=== PATIENT | female | born 1975 | race African-American/Black ===

== ENCOUNTER 2018-10-08 14:58 | Emergency (ER) | payer OTHER ==
[2018-10-08 16:33] LABS: Absolute Lymphocytes (CBC) 2.6 K/uL (0.7-4.9); Absolute Monocytes 0.5 K/uL (0.1-1.3); Absolute Neutrophil 6.4 K/uL (1.8-8.0); Basophils % 0.6 % (0-1.3); Eosinophils % 0.6 % (0-4.4); Hematocrit 32.4 % (36.0-45.0); Lymphocytes % 27.2 % (15.3-44.8); MPV 9.1 fL (7.6-11.3); Monocytes % 5.1 % (3.3-12.3); RBC Red Blood Cell Count 3.88 M/uL (3.86-4.86)
--- NOTE | 2018-10-08 16:45 | RAD REPORT ---
EXAM DESCRIPTION: Kelly Single View10/08/2018 4:06 pm CLINICAL HISTORY: Chest pain COMPARISON: none FINDINGS: The lungs appear clear of acute infiltrate. The heart is normal size IMPRESSION: No acute abnormalities displayed
[2018-10-08 16:51] LABS: ALT/SGPT 21 U/L (12-78); AST/SGOT 13 U/L (15-37); Albumin 3.8 g/dL (3.4-5.0); Alkaline Phosphatase 63 U/L (45-117); BUN Blood Urea Nitrogen 5 mg/dL (7-18); Bicarbonate 23 mmol/L (21-32); Bilirubin Direct < 0.1 mg/dL (0-0.2); Bilirubin Total 0.3 mg/dL (0.2-1.0); Glucose Level 101 mg/dL (74-106); Lipase 167 U/L (73-393); Magnesium 2.1 mg/dL (1.8-2.4); NT PRO-BNP 185 pg/mL (<125); Potassium 3.3 mmol/L (3.5-5.1); Protein, Total 7.9 g/dL (6.4-8.2); Sodium Level 141 mmol/L (136-145); Troponin (Emerg Dept Use Only) < 0.02 ng/mL (0.0-0.045)
[2018-10-08 17:08] LABS: Protime INR 1.04
[2018-10-08 17:40] LABS: Urine Specific Gravity 1.015 (1.005-1.030)
[2018-10-08 17:41] LABS: Urine Blood 3+ (NEG); Urine Glucose NEGATIVE (NEG); Urine Protein NEGATIVE (NEG)
--- NOTE | 2018-10-08 18:32 | RAD REPORT ---
EXAM DESCRIPTION: USExtremity Venous Uni Ltd3 5:07 pm CLINICAL HISTORY: Left arm swelling COMPARISON: None FINDINGS: The left internal jugular, left subclavian, left cephalic, left axillary, left brachial, l eft basilic, veins are generally compressible and demonstrate augmentation. Doppler demonstrates goo d flow. IMPRESSION: No evidence of thrombus within the veins of the left upper extremity
--- NOTE | 2018-10-08 18:54 | ER ---
Nurse's Notes [facility] Name: Zayra Hoffman Age: 43 yrs Sex: Female : 1975 Arrival Date: 10/08/2018 Time: 15:04 Bed 26 Private MD: Diagnosis: Essential (primary) hypertension;Edema, not elsewhere classified Presentation: 10/08 15:05 Presenting complaint: Patient states: I am having swelling all over since Wednesday, pt la1 reports feeling "very tight" and nauseous. Was seen two weeks ago and dx with gastritis. Pt denies vomiting, diarrhea. Transition of care: patient was not received from another setting of care. Onset of symptoms was October 08, 2018. Risk Assessment: Do you want to hurt yourself or someone else? Patient reports no desire to harm self or others. Initial Sepsis Screen: Does the patient meet any 2 criteria? No. Patient's initial sepsis screen is negative. Does the patient have a suspected source of infection? No. Patient's initial sepsis screen is negative. Care prior to arrival: None. 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 - Social history:: Smoking status: Patient/guardian denies using tobacco. - Ebola Screening: : No symptoms or risks identified at this time. Screenin:18 Abuse screen: Denies threats or abuse. Denies injuries from another. Nutritional rv screening: No deficits noted. Tuberculosis screening: No symptoms or risk factors identified. Fall Risk None identified. Assessment: 16:17 General: Appears in no apparent distress. uncomfortable, Behavior is calm, cooperative. rv Pain: Complains of pain in back and abdomen. Neuro: Level of Consciousness is awake, alert, obeys commands, Oriented to person, place, time, situation. Cardiovascular: Capillary refill < 3 seconds. Respiratory: Airway is patent. GI: No signs and/or symptoms were reported involving the gastrointestinal system. : No signs and/or symptoms were reported regarding the genitourinary system. EENT: No signs and/or symptoms were reported regarding the EENT system. Derm: Skin is intact. Musculoskeletal: No signs and/or symptoms reported regarding the musculoskeletal system. Vital Signs: 15:06 BP 177 / 86; Pulse 74; Resp 18; Temp 99.1; Pulse Ox 98% on R/A; Weight 104.33 kg; la1 Height 5 ft. 5 in. (165.10 cm); 16:00 BP 149 / 74 RA; Pulse 75; Resp 17 S; Pulse Ox 100% on R/A; rv 19:18 BP 153 / 77 LA; Pulse 75; Resp 17 S; Pulse Ox 99% on R/A; rv 15:06 Body Mass Index 38.27 (104.33 kg, 165.10 cm) la1 ED Course: 15:04 Patient arrived in ED. la1 15:06 Triage completed. la1 15:07 Arm band placed on left wrist. la1 15:21 Glen Euceda MD is Attending Physician. gs 16:05 XRAY Chest (1 view) In Process Unspecified. EDMS 16:10 Inserted saline lock: 22 gauge in left antecubital area, using aseptic technique. Blood rv collected. 16:18 Patient has correct armband on for positive identification. Bed in low position. Call rv light in reach. Side rails up X 1. Adult w/ patient. athletic monitor on. Pulse ox on. NIBP on. 16:19 Basic Metabolic Panel Sent. rv 17:00 Ultrasound completed. Patient tolerated well. sg3 17:01 US Extremity Venous Unilateral Ltd In Process Unspecified. EDMS 19:19 No provider procedures requiring assistance completed. IV discontinued, bleeding rv controlled, No redness/swelling at site. Pressure dressing applied. Administered Medications: No medications were administered Outcome: 18:54 Discharge ordered by . gs 19:19 Discharged to home ambulatory. rv 19:19 Condition: good 19:19 Discharge instructions given to patient, Instructed on discharge instructions, follow up and referral plans. Demonstrated understanding of instructions, follow-up care. 19:19 Patient left the ED. rv Signatures: Dispatcher [employer] EDMS Mansoor Sanderson, RN RN la1 Glen Euceda MD MD Carrol Nicholas sg3 Ralph Loera RN RN rv
--- NOTE | 2018-10-08 18:54 | EDPHYS ---
Physician Documentation [facility] Name: Zayra Hoffman Age: 43 yrs Sex: Female : 1975 Arrival Date: 10/08/2018 Time: 15:04 Bed 26 Private MD: ED Physician Glen Euceda HPI: 10/08 19:01 This 43 yrs old Black Female presents to ER via Wheelchair with complaints of BP high, gs Swelling Nausea. 19:01 Onset: The symptoms/episode began/occurred 2 week(s) ago. Modifying factors: The gs symptoms are aggravated by discontinuation of meds. Associated signs and symptoms: Pertinent negatives: chest pain. Severity of symptoms: At its worst the blood pressure was moderate, in the emergency department the blood pressure is unchanged. The patient has experienced similar episodes in the past, several times. The patient has been recently seen by a physician: the patient's primary care provider, with similar presenting complaints. 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 - Social history:: Smoking status: Patient/guardian denies using tobacco. - Ebola Screening: : No symptoms or risks identified at this time. ROS: 19:01 Abdomen/GI: Positive for nausea. gs 19:01 MS/extremity: Positive for edema. 19:01 All other systems are negative. Exam: 19:01 Head/Face: Normocephalic, atraumatic. Eyes: Pupils equal round and reactive to light, gs extra-ocular motions intact. Lids and lashes normal. Conjunctiva and sclera are non-icteric and not injected. Cornea within normal limits. Periorbital areas with no swelling, redness, or edema. ENT: Nares patent. No nasal discharge, no septal abnormalities noted. Tympanic membranes are normal and external auditory canals are clear. Oropharynx with no redness, swelling, or masses, exudates, or evidence of obstruction, uvula midline. Mucous membranes moist. Neck: Trachea midline, no thyromegaly or masses palpated, and no cervical lymphadenopathy. Supple, full range of motion without nuchal rigidity, or vertebral point tenderness. No Meningismus. Chest/axilla: Normal chest wall appearance and motion. Nontender with no deformity. No lesions are appreciated. 19:01 Back: No spinal tenderness. No costovertebral tenderness. Full range of motion. Skin: Warm, dry with normal turgor. Normal color with no rashes, no lesions, and no evidence of cellulitis. MS/ Extremity: Pulses equal, no cyanosis. Neurovascular intact. Full, normal range of motion. Neuro: Awake and alert, GCS 15, oriented to person, place, time, and situation. Cranial nerves II-XII grossly intact. Motor strength 5/5 in all extremities. Sensory grossly intact. Cerebellar exam normal. Normal gait. 19:01 Respiratory: Lungs have equal breath sounds bilaterally, clear to auscultation and percussion. No rales, rhonchi or wheezes noted. No increased work of breathing, no retractions or nasal flaring. Abdomen/GI: Soft, non-tender, with normal bowel sounds. No distension or tympany. No guarding or rebound. No evidence of tenderness throughout. 19:01 Constitutional: The patient appears alert, awake. 19:01 Cardiovascular: Rate: normal, Rhythm: regular, Pulses: no pulse deficits are appreciated, Edema: 2+ edema to level of left foot, left forearm, left wrist, left hand and right foot. 19:01 ECG was reviewed by the Attending Physician. 19:01 Musculoskeletal/extremity: Extremities: grossly normal except: noted in the left arm: swelling, tenderness, ROM: no acute changes, Pulses: are normal with no appreciated deficits, Sensation intact. Vital Signs: 15:06 BP 177 / 86; Pulse 74; Resp 18; Temp 99.1; Pulse Ox 98% on R/A; Weight 104.33 kg; la1 Height 5 ft. 5 in. (165.10 cm); 16:00 BP 149 / 74 RA; Pulse 75; Resp 17 S; Pulse Ox 100% on R/A; rv 19:18 BP 153 / 77 LA; Pulse 75; Resp 17 S; Pulse Ox 99% on R/A; rv 15:06 Body Mass Index 38.27 (104.33 kg, 165.10 cm) la1 MDM: 15:47 Patient medically screened. gs 19:01 Differential diagnosis: hypertensive crisis, dvt,renal failure. Data reviewed: vital gs signs, nurses notes, lab test result(s), EKG, radiologic studies. 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 Response to treatment: the patient's symptoms have mildly improved after treatment, and as a result, I will discharge patient. 10/08 15:30 Order name: Urine Dipstick--Ancillary (enter results); Complete Time: 18:14 ms 10/08 15:30 Order name: Urine --Ancillary (enter results); Complete Time: 18:14 ms 10/08 15:50 Order name: Basic Metabolic Panel 10/08 15:50 Order name: CBC with Diff; Complete Time: 17:08 10/08 15:50 Order name: LFT's; Complete Time: 17: 10/08 15:50 Order name: Magnesium; Complete Time: 17: 10/08 15:50 Order name: NT PRO-BNP; Complete Time: 17:08 10/08 15:50 Order name: PT-INR; Complete Time: 18:14 10/08 15:50 Order name: Troponin (emerg Dept Use Only); Complete Time: 17:08 10/08 15:50 Order name: XRAY Chest (1 view); Complete Time: 17: 10/08 15:50 Order name: TSH; Complete Time: 17: 10/08 15:50 Order name: Lipase; Complete Time: 17:08 10/08 15:50 Order name: Basic Metabolic Panel; Complete Time: 17:08 EDMS 10/08 15:50 Order name: US Extremity Venous Unilateral Ltd; Complete Time: 18:45 10/08 15:50 Order name: EKG; Complete Time: 15:50 10/08 15:50 Order name: Cardiac monitoring; Complete Time: 16:14 10/08 15:50 Order name: EKG - Nurse/Tech; Complete Time: 16:28 10/08 15:50 Order name: IV Saline Lock; Complete Time: 16:14 10/08 15:50 Order name: Labs collected and sent; Complete Time: 16:14 10/08 15:50 Order name: O2 Per Protocol; Complete Time: 16:14 10/08 15:50 Order name: O2 Sat Monitoring; Complete Time: 16:14 gs EC:01 Rate is 73 beats/min. Rhythm is regular. [place] interval is normal. QRS interval is normal. gs T waves are Flattened. Clinical impression: NSR w/ Non-specific ST/T Changes. Interpreted by me. Administered Medications: No medications were administered Disposition: 10/08/18 18:54 Discharged to Home. Impression: Essential (primary) hypertension, Edema, not elsewhere classified. - Condition is Stable. - Discharge Instructions: Edema, Managing Your Hypertension. - Medication Reconciliation Form, Thank You Letter, Antibiotic Education, Prescription Opioid Use form. - Follow up: Private Physician; When: 1 - 2 days. Signatures: Dispatcher [employer] EDMS Mansoor Sanderson RN RN la1 Glen Euceda MD MD Ralph Loera RN RN rv Corrections: (The following items were deleted from the chart) 19:19 18:54 10/08/2018 18:54 Discharged to Home. Impression: Essential (primary) rv hypertension; Edema, not elsewhere classified. Condition is Stable. Forms are Medication Reconciliation Form, Thank You Letter, Antibiotic Education, Prescription Opioid Use. Follow up: Private Physician; When: 1 - 2 days.
--- NOTE | 2018-10-09 09:42 | EKG ---
Test Date: 2018-10-08 Test Time: 16:24:36 Dispatch Associate: LADONNAT MEASUREMENT RESULTS: Intervals: Rate: 73 OR: 152 QRSD: 78 QT: 408 QTc: 449 Mosby: P: 47 OR: 152 QRS: 17 T: 32 INTERPRETIVE STATEMENTS: Normal sinus rhythm Normal ECG No previous ECG available for comparison Electronically Signed On 10-09-18 09:41:53 CDT by Rashawn Bender
== END 2018-10-08 19:19 | disposition home or self-care (01) ==
LOC: ER 14:58
DX: I10 Essential (primary) hypertension (principal); R60.9 Edema, unspecified
CPT/HCPCS: 36415; 71045; 80048; 80076; 81003; 81025; 83690; 83735; 83880; 84443; 84484; 85025; 85610; 93005; 93971; 99284

== ENCOUNTER 2018-10-09 20:09 | Emergency (ER) | payer OTHER ==
--- OUTSIDE RECORDS SUMMARY | 2018-10-09 20:12 | XMS REPORT | Clinical Summary ---
:1975 Author Organization [facility] Address [address] [place] [address] Care Team Providers Name Role Phone Thony Gotti MD Primary Care Provider Allergies No Known Allergies Medications Medication Sig Dispensed Refills Start Date End Date Status losartan-hydrochlor Take 1 tablet by 1 06/25/2018 Active othiazide (HYZAAR) mouth daily. 100-25 mg per tablet clonAZEPAM TAKE 1 TABLET BY 1 08/17/2018 Active (KlonoPIN) 0.5 MG MOUTH TWICE A DAY tablet NEEDED FOR ANXIETY cholecalciferol, Take by mouth. 0 Active vitamin D3, (VITAMIN D3) 2,000 unit capsule capsule FERROUS FUMARATE Take by mouth. 0 Active ORAL meclizine meclizine 25 mg tablet 0 10/14/2010 Active (ANTIVERT) 25 mg TAKE 1 TABLET BY MOUTH EVERY DAY NEEDED tablet norethindrone-e.est Take by mouth. 0 Active radiol-iron (LOESTIN 24 FE) 1 mg-20 mcg (24)/75 mg (4) per tablet biotin 1 mg capsule biotin 0 Active diazePAM (VALIUM) 5 Take 20 mins 6 tablet 0 09/05/2018 09/12/2019 Active MG tablet before MRI, repeat 1 time as needed famotidine (PEPCID) Take 1 tablet (20 28 tablet 0 09/24/2018 10/08/2018 20 MG tablet mg total) by mouth 2 (two) times a day for 14 days. acetaminophen-codei Take 1 tablet by 15 tablet 0 09/24/2018 09/29/2018 ne (TYLENOL WITH mouth every 6 CODEINE #3) 300-30 (six) hours as mg per tablet needed for moderate pain for up to 5 days. Active Problems Problem Noted Date Vertigo 09/05/2018 HTN (hypertension) 09/05/2018 Encounters Date Type Specialty Care Team Description 09/28/2018 Orders Only Neurology Donovan Beebe (Primary Dx); MD Khushi Vertigo 09/26/2018 Hospital Radiology Buzz Ryan, Hemiparesis of left Encounter MD Khushi nondominant side, unspecified hemiparesis etiology (HCC) 09/24/2018 Emergency Emergency AdamsIsaura Epigastric pain ( Primary Dx); Medicine MD Mirtha SOB (shortness of breath); Swelling 09/15/2018 Orders Only Neurology Buzz Ryan, Hemiparesis of left MD Khushi nondominant side, unspecified hemiparesis etiology (HCC) (Primary Dx) 09/05/2018 Office Visit Neurology Donovan Beebe (Primary Dx); MD Khushi Neuropathic pain; Left foot drop; Paresthesias 07/27/2018 Telephone Neurology Khushi Beebe MD after 10/08/2017 Family History Medical History Relation Name Comments Heart disease Father Hypertension Father Hypertension Mother Relation Name Status Comments Father Alive Mother Alive Social History Tobacco Use Types Packs/Day Years Used Date Never Smoker Smokeless Tobacco: Never Used Alcohol Use Drinks/Week oz/Week Comments No Alcohol Habits Answer Date Recorded How often do you have a drink containing alcohol? Never 09/05/2018 How many drinks containing alcohol do you have on a typical Not asked day when you are drinking? How often do you have six or more drinks on one occasion? Not asked Sex Assigned at Date Recorded Not on file Job Start Date Occupation Industry Not on file Not on file Not on file Travel History Travel Start Travel End No recent travel history available. Last Filed Vital Signs Vital Sign Reading Time Taken Blood Pressure 157/75 09/24/2018 4:01 AM PHYSICIAN EXECUTIVE Pulse 77 09/24/2018 4:01 AM PHYSICIAN EXECUTIVE Temperature 37.1 C (98.7 F) 09/23/2018 11:42 PM PHYSICIAN EXECUTIVE Respiratory Rate 22 09/24/2018 4:01 AM PHYSICIAN EXECUTIVE Oxygen Saturation 97% 09/24/2018 4:01 AM PHYSICIAN EXECUTIVE Inhaled Oxygen Concentration - - Weight 104 kg (230 lb) 09/23/2018 11:53 PM PHYSICIAN EXECUTIVE Height 165.1 cm (5' 5") 09/23/2018 11:53 PM PHYSICIAN EXECUTIVE Body Mass Index 38.27 09/23/2018 11:53 PM PHYSICIAN EXECUTIVE Plan of Treatment Date Type Specialty Care Team Description 10/21/2018 Pre-Admit Testing Pre-Admission Appointment Testing 10/27/2018 [place] [address] [place] [address] [phone] 10/27/2018 [place] [address] [place], [place] [phone] 10/27/2018 [place] [address] [place], [place] [id number] Health Maintenance Due Date Last Done Comments CERVICAL CANCER SCREENING 1994 INFLUENZA VACCINE 02/16/2018 Procedures Procedure Name Priority Date/Time Associated Comments Diagnosis CT ABDOMEN PELVIS W STAT 09/24/2018 2:38 Results for this CONTRAST AM PHYSICIAN EXECUTIVE procedure are in the results section. CT ANGIOGRAM PE CHEST STAT 09/24/2018 2:38 Results for this AM PHYSICIAN EXECUTIVE procedure are in the results section. US DUPLEX VENOUS UPPER STAT 09/24/2018 2:25 Results for this EXTREMITY LEFT AM PHYSICIAN EXECUTIVE procedure are in the results section. LIPASE LEVEL STAT 09/24/2018 1:29 Results for this AM PHYSICIAN EXECUTIVE procedure are in the results section. CREATINE KINASE, TOTAL Routine 09/24/2018 1:29 Results for this (CPK) AM PHYSICIAN EXECUTIVE procedure are in the results section. B NATRIURETIC PEPTIDE Routine 09/24/2018 1:29 Results for this AM PHYSICIAN EXECUTIVE procedure are in the results section. TROPONIN Routine 09/24/2018 1:29 Results for this AM PHYSICIAN EXECUTIVE procedure are in the results section. ESTIMATED GFR Routine 09/24/2018 1:29 Results for this AM PHYSICIAN EXECUTIVE procedure are in the results section. HCG QUALITATIVE, SERUM STAT 09/24/2018 1:29 Results for this SCREEN AM PHYSICIAN EXECUTIVE procedure are in the results section. COMPREHENSIVE METABOLIC Routine 09/24/2018 1:29 Results for this PANEL AM PHYSICIAN EXECUTIVE procedure are in the results section. PARTIAL THROMBOPLASTIN Routine 09/24/2018 1:29 Results for this TIME (PTT) AM PHYSICIAN EXECUTIVE procedure are in the results section. PROTHROMBIN TIME WITH Routine 09/24/2018 1:29 Results for this INR AM PHYSICIAN EXECUTIVE procedure are in the results section. HC COMPLETE BLD COUNT Routine 09/24/2018 1:29 Results for this W/AUTO DIFF AM PHYSICIAN EXECUTIVE procedure are in the results section. ECG 12-LEAD STAT 09/23/2018 11:37 Results for this PM PHYSICIAN EXECUTIVE procedure are in the results section. INTERPRETATION (REFLEX Routine 09/05/2018 10:54 Results for this QUEST) AM PHYSICIAN EXECUTIVE procedure are in the results section. RQEZ RNA POLYMERASE III Routine 09/05/2018 10:54 Results for this (NOT ORDERABLE) AM PHYSICIAN EXECUTIVE procedure are in the results section. CENTROMERE B ANTIBODY Routine 09/05/2018 10:54 Results for this (NOT ORDERABLE) AM PHYSICIAN EXECUTIVE procedure are in the results section. SCL-70 ANTIBODY Routine 09/05/2018 10:54 Results for this AM PHYSICIAN EXECUTIVE procedure are in the results section. ANTINUCLEAR ANTIBODIES Routine 09/05/2018 10:54 Results for this TITER AND PATTERN AM PHYSICIAN EXECUTIVE procedure are in the results section. KIRK SCREEN, IFA (NOT Routine 09/05/2018 10:54 Results for this ORDERABLE) AM PHYSICIAN EXECUTIVE procedure are in the results section. COMPREHENSIVE METABOLIC Routine 09/05/2018 10:54 Neuropathic pain Results for this PANEL AM PHYSICIAN EXECUTIVE Left foot drop procedure are in Paresthesias the results section. CBC WITH PLATELET AND Routine 09/05/2018 10:54 Neuropathic pain Results for this DIFFERENTIAL AM PHYSICIAN EXECUTIVE Left foot drop procedure are in Paresthesias the results section. LYME TOTAL AB W REFLEX Routine 09/05/2018 10:54 Neuropathic pain Results for this AM PHYSICIAN EXECUTIVE Left foot drop procedure are in Paresthesias the results section. VITAMIN B12 AND FOLATE Routine 09/05/2018 10:54 Neuropathic pain Results for this AM PHYSICIAN EXECUTIVE Left foot drop procedure are in Paresthesias the results section. THYROID PANEL WITH TSH Routine 09/05/2018 10:54 Neuropathic pain Results for this AM PHYSICIAN EXECUTIVE Left foot drop procedure are in Paresthesias the results section. SEDIMENTATION RATE Routine 09/05/2018 10:54 Neuropathic pain Results for this AM PHYSICIAN EXECUTIVE Left foot drop procedure are in Paresthesias the results section. HIV-1 RNA, QUANTITATIVE Routine 09/05/2018 10:54 Neuropathic pain Results for this RT, PCR AM PHYSICIAN EXECUTIVE Left foot drop procedure are in Paresthesias the results section. CRP HIGH SENSITIVITY Routine 09/05/2018 10:54 Neuropathic pain Results for this AM PHYSICIAN EXECUTIVE Left foot drop procedure are in Paresthesias the results section. ANGIOTENSIN CONVERTING Routine 09/05/2018 10:54 Neuropathic pain Results for this ENZYME AM PHYSICIAN EXECUTIVE Left foot drop procedure are in Paresthesias the results section. ANCA SCREEN WITH MPO Routine 09/05/2018 10:54 Neuropathic pain Results for this AND PR3, WITH REFLEX TO AM PHYSICIAN EXECUTIVE Left foot drop procedure are in ANCA TITER Paresthesias the results section. after 10/08/[address] Angiogram Pe Chest (09/24/2018 2:38 AM PHYSICIAN EXECUTIVE) Narrative Performed At CT ANGIOGRAM PE CHEST [facility] CLINICAL INDICATION: sob TECHNIQUE:CT angiographic images of the chest were obtained during intravenous administration of iodinated contrast.Computerized, reformatted images and 3-D MIP images were obtained and archived (per CT pulmonary embolism protocol). CT scans are performed using radiation dose reduction techniques (iterative reconstruction and/or automated exposure control). Technical factors are evaluated and adjusted to ensure appropriate moderation of exposure. Automated dose management technology is applied to adjust radiation exposure while achieving a diagnostic quality image. COMPARISON:None. FINDINGS: Pulmonary arteries: Slightly limited study due to poor contrast timing. Within this limitation, no evidence of acute or chronic pulmonary embolism. No evidence of right heart strain. The main pulmonary artery is normal in luminal diameter. Aorta:No aneurysm. Lungs and large airways:Clear. Pleura:No pleural effusion, pleural thickening, or pneumothorax. Heart and pericardium:Heart size is normal. No pericardial effusion. Mediastinum and leta:No mass or hematoma. Lymph nodes:No pathological adenopathy in the leta, axilla or mediastinum. Chest wall:Unremarkable. Bones:Normal. Upper abdomen:No focal abnormality detected with limited evaluation. IMPRESSION: 1. Negative CTA examination for pulmonary embolism. 2. Lungs without focal or confluent airspace consolidation. [facility]-[id number] Procedure Note Interface, Radiology Results Incoming - 09/24/2018 2:[address] ANGIOGRAM PE CHEST CLINICAL INDICATION: sob TECHNIQUE: CT angiographic images of the chest were obtained during intravenous administration of iodinated contrast. Computerized, reformatted images and 3-D MIP images were obtained and archived (per CT pulmonary embolism protocol). CT scans are performed using radiation dose reduction techniques (iterative reconstruction and/or automated exposure control). Technical factors are evaluated and adjusted to ensure appropriate moderation of exposure. Automated dose management technology is applied to adjust radiation exposure while achieving a diagnostic quality image. COMPARISON: None. FINDINGS: Pulmonary arteries: Slightly limited study due to poor contrast timing. Within this limitation, no evidence of acute or chronic pulmonary embolism. No evidence of right heart strain. The main pulmonary artery is normal in luminal diameter. Aorta: No aneurysm. Lungs and large airways: Clear. Pleura: No pleural effusion, pleural thickening, or pneumothorax. Heart and pericardium: Heart size is normal. No pericardial effusion. Mediastinum and leta: No mass or hematoma. Lymph nodes: No pathological adenopathy in the leta, axilla or mediastinum. Chest wall: Unremarkable. Bones: Normal. Upper abdomen: No focal abnormality detected with limited evaluation. IMPRESSION: 1. Negative CTA examination for pulmonary embolism. 2. Lungs without focal or confluent airspace consolidation. [facility]-[id number] Performing Organization Address City/State/Zipcode Phone Number [facility] [address] [place] [address] CT Abdomen Pelvis W Contrast (09/24/2018 2:38 AM PHYSICIAN EXECUTIVE) Narrative Performed At Examination:CT ABDOMEN PELVIS W CONTRAST [facility] Clinical History: upper abd pain Comparison: None. Findings: CT scans are performed using radiation dose reduction techniques.Technical factors are evaluated and adjusted to ensure appropriate moderation of exposure.Automated dose management technology is applied to adjust radiation exposure while achieving a diagnostic quality image. CT imaging was performed with iterative reconstruction techniques and/or automated exposure control to reduce radiation dose. CT scan of abdomen and pelvis was performed after intravenous contrast. The liver demonstrates few subcentimeter cysts. The spleen, pancreas, and adrenal glands are unremarkable. Small splenule is noted inferior to the spleen. Gallbladder is not visualized. The kidneys are within normal limits without hydronephrosis. The appendix is visualized and unremarkable. No bowel wall thickening or fat stranding is seen. No bowel dilatation is seen. No free air or fluid is seen. Urinary bladder is unremarkable. The visualized lung bases are clear. IMPRESSION: 1. No acute abnormality identified in the abdomen or pelvis. [facility]-[id number] Procedure Note Interface, Radiology Results Incoming - 09/24/2018 2:57 AM PHYSICIAN EXECUTIVE Examination: CT ABDOMEN PELVIS W CONTRAST Clinical History: upper abd pain Comparison: None. Findings: CT scans are performed using radiation dose reduction techniques. Technical factors are evaluated and adjusted to ensure appropriate moderation of exposure. Automated dose management technology is applied to adjust radiation exposure while achieving a diagnostic quality image. CT imaging was performed with iterative reconstruction techniques and/or automated exposure control to reduce radiation dose. CT scan of abdomen and pelvis was performed after intravenous contrast. The liver demonstrates few subcentimeter cysts. The spleen, pancreas, and adrenal glands are unremarkable. Small splenule is noted inferior to the spleen. Gallbladder is not visualized. The kidneys are within normal limits without hydronephrosis. The appendix is visualized and unremarkable. No bowel wall thickening or fat stranding is seen. No bowel dilatation is seen. No free air or fluid is seen. Urinary bladder is unremarkable. The visualized lung bases are clear. IMPRESSION: 1. No acute abnormality identified in the abdomen or pelvis. [facility]-[id number] Performing Organization Address City/State/Zipcode Phone Number [facility] [address] [place] [address] Us duplex venous upper extremity (09/24/2018 2:25 AM PHYSICIAN EXECUTIVE) Narrative Performed At Examination:US DUPLEX VENOUS UPPER EXTREMITY LEFT [facility] Clinical History: left arm neck swelling Comparison: None. Findings: Left upper extremity venous Doppler duplex ultrasound was performed with bhatia scale imaging, color flow imaging, and Doppler duplex with spectral analysis of the waveforms.Spectral Doppler evaluation of the right subclavian vein was also performed. The left internal jugular, subclavian, axillary, brachial, basilic, cephalic, radial, and ulnar veins demonstrate normal compression and color flow. Normal waveforms are noted. The right subclavian vein is also patent. IMPRESSION: No evidence of venous thrombosis of the visualized left upper extremity veins. [facility]-[id number] Procedure Note Interface, Radiology Results Incoming - 09/24/2018 2:31 AM PHYSICIAN EXECUTIVE Examination: US DUPLEX VENOUS UPPER EXTREMITY LEFT Clinical History: left arm neck swelling Comparison: None. Findings: Left upper extremity venous Doppler duplex ultrasound was performed with bhatia scale imaging, color flow imaging, and Doppler duplex with spectral analysis of the waveforms. Spectral Doppler evaluation of the right subclavian vein was also performed. The left internal jugular, subclavian, axillary, brachial, basilic, cephalic, radial, and ulnar veins demonstrate normal compression and color flow. Normal waveforms are noted. The right subclavian vein is also patent. IMPRESSION: No evidence of venous thrombosis of the visualized left upper extremity veins. [facility]-[id number] Performing Organization Address City/[facility]/Zipcode Phone Number [facility] [address] [place] [address] Estimated GFR (09/24/2018 1:29 AM PHYSICIAN EXECUTIVE) Estimated GFR >=90 mL/min/1.73 m2 [facility] Comment: HOSPITAL CatergoryUnitsInterpretation G1 >=90 Normal or high G2 60-89Mildly decreased [id number] to moderately decreased [id number] to severely decreased G4 15-29Severely decreased G5 <15Kidney failure The eGFR was calculated using the Chronic Kidney Disease Epidemiology Collaboration (CKD-EPI) equation. Interpretation is based on recommendations of the National Kidney Foundation-Kidney Disease Outcomes Quality Initiative (NKF-KDOQI) published in 2014. Specimen Plasma specimen Performing Organization Address [facility] Phone Number [facility] DEPARTMENT OF PATHOLOGY AND [address] [place] [address]. [address] [address] Troponin (09/24/2018 1:29 AM PHYSICIAN EXECUTIVE) Troponin <0.10 0.00 - 0.10 ng/mL [facility] Comment: HOSPITAL 0.11 - 1.49 ng/mlMay indicate increased risk of acute coronary syndrome. >=1.5 ng/mlConsistent with acute myocardial infarction. The diagnostic value of a single normal or non-diagnostic result is questionable.Serial samples at 2-6 hour intervals are required to rule out acute myocardial injury. Specimen Plasma specimen Performing Organization Address [facility] Phone Number [facility] DEPARTMENT OF PATHOLOGY AND [address] [place] [address]. [address] [address] Partial thromboplastin time, activated (09/24/2018 1:29 AM PHYSICIAN EXECUTIVE) PTT 33.1 23.0 - 36.0 sec [facility] Comment: HOSPITAL PTT therapeutic range for unfractionated heparin is 61.0-112.0 seconds which corresponds to Anti-Xa 0.3-0.7 U/ml. Specimen Blood Performing Organization Address [facility] Phone Number [facility] DEPARTMENT OF PATHOLOGY AND [address] [place] [address]. [place] [address] [place] [address] Prothrombin time with INR (09/24/2018 1:29 AM PHYSICIAN EXECUTIVE) Prothrombin time 12.7 11.5 - 14.5 sec [facility] INR 1.0 [facility] Comment: HOSPITAL The International Normalized Ratio (INR) is a therapeutic monitoring tool for patients who are stable on oral anticoagulant therapy. An INR of 2.0-3.0 is suggested for deep vein thrombosis/pulmonary embolism. Specimen Blood Performing Organization Address City/State/Zipcode Phone Number [facility] DEPARTMENT OF PATHOLOGY AND [address] [place] [address] [facility] [address] [place] [address] CBC with platelet and differential (09/24/2018 1:29 AM PHYSICIAN EXECUTIVE)Only the most recent of2 resultswithin the time period is included. WBC 8.58 4.50 - 11.00 k/uL [facility] RBC 3.94 (L) 4.20 - 5.50 m/uL [facility] HGB 10.8 (L) 12.0 - 16.0 g/dL [facility] HCT 32.6 (L) 37.0 - 47.0 % [facility] MCV 82.7 82.0 - 100.0 fL [facility] MCH 27.4 27.0 - 34.0 pg [facility] MCHC 33.1 31.0 - 37.0 g/dL [facility] RDW - SD 45.3 37.0 - 55.0 fL [facility] MPV 10.1 8.8 - 13.2 fL [facility] Platelet count 382 150 - 400 k/uL [facility] Neutrophils 50.8 39.0 - 69.0 % [facility] Lymphocytes 40.7 25.0 - 45.0 % [facility] Monocytes 6.4 0.0 - 10.0 % [facility] Eosinophils 1.3 0.0 - 5.0 % [facility] Basophils 0.5 0.0 - 1.0 % [facility] Immature granulocytes 0.3 0.0 - 1.0 % [facility] Specimen Blood Performing Organization Address City/State/Zipcode Phone Number [facility] DEPARTMENT OF PATHOLOGY AND [address] [place] [address]. [place], [place] [address] [place] [id number] [place] [id number] hCG qualitative, serum screen (09/24/2018 1:29 AM PHYSICIAN EXECUTIVE) hCG qualitative, serum NegativeComment: [facility] Sensitivity of HCG test: 25 HOSPITAL mIU/mL Specimen Blood Performing Organization Address [facility] Phone Number [facility] DEPARTMENT OF PATHOLOGY AND [address] [place] [address]. [id number] [place] [address] B natriuretic peptide (09/24/2018 1:29 AM PHYSICIAN EXECUTIVE) BNP 22 0 - 100 pg/mL [facility] Performing Organization Address [facility] Phone Number [facility] DEPARTMENT OF PATHOLOGY AND [address] [place] [address]. [place], [place] [id number] [place] [address] Lipase level (09/24/2018 1:29 AM PHYSICIAN EXECUTIVE) Lipase 41 23 - 300 U/L [facility] Specimen Serum Performing Organization Address [facility] Phone [place] [facility] DEPARTMENT OF PATHOLOGY AND [address] [place] [address]. [address] [address] Creatine kinase, total (CPK) (09/24/2018 1:29 AM PHYSICIAN EXECUTIVE) Creatine kinase 185 35 - 200 U/L [facility] Specimen Plasma specimen Performing Organization Address [facility] Phone Number [facility] DEPARTMENT OF PATHOLOGY AND [address] [place] [address]. [address] [address] Comprehensive metabolic panel (09/24/2018 1:29 AM PHYSICIAN EXECUTIVE)Only the most recent of2 resultswithin the time period is included. Sodium 138 135 - 148 mEq/L [facility] Potassium 3.8 3.5 - 5.0 mEq/L [facility] Chloride 101 99 - 109 mEq/L [facility] CO2 23 (L) 24 - 31 mEq/L [facility] Anion gap 14@ANIO 7 - 15 mEq/L [facility] BUN 6 (L) 8 - 24 mg/dL [facility] Creatinine 0.73 0.50 - 0.90 mg/dL [facility] Glucose 124 (H) 65 - 99 mg/dL [facility] Calcium 9.2 8.6 - 10.6 mg/dL [facility] Protein 7.3 6.3 - 8.2 g/dL [facility] Albumin 3.6 3.5 - 5.0 g/dL [facility] A/G ratio 1.0 0.7 - 3.8 [facility] Alkaline phosphatase 64 30 - 115 U/L [facility] AST 18 15 - 46 U/L [facility] ALT 14 10 - 55 U/L [facility] Total bilirubin <0.3 0.2 - 1.2 mg/dL [facility] Specimen Plasma specimen Performing Organization Address City/State/Zipcode Phone Number [facility] DEPARTMENT OF PATHOLOGY AND [address] [place] [address] GENOMIC MEDICINE [facility] [address] [place] [address] ECG 12 lead (09/23/2018 11:37 PM PHYSICIAN EXECUTIVE) Ventricular rate 74 [facility] Atrial rate 74 [facility] NV interval 154 [facility] QRSD interval 78 [facility] QT interval 370 [facility] QTC interval 410 [facility] P axis 1 0 [facility] QRS axis 1 11 [facility] T wave axis 53 [facility] EKG impression Normal sinus rhythm-RSR' or QR pattern in V1 [facility] suggests right ventricular conduction delay--No previous ECGs available- Narrative Performed At Performing Organization Address City/State/Zipcode Phone Number [facility] [address] [place] [address] RQEZ RNA POLYMERASE III (NOT ORDERABLE) (09/05/2018 10:54 AM PHYSICIAN EXECUTIVE) RNA polymerase III <20 <20 Units [employer] [facility] [place] Narrative Performed At FASTING:YES [facility] FASTING: YES Resulting Agency Comment Performing Organization Information: Site ID: EZ Name: [facility] [place], Address: [address] [place] [phone] Director: Oanh Barragan MD,PhD,VASILE Performing Organization Address [facility] Hospitalcode Phone Number [facility]ALE[facility] [id number] [place] [phone] [facility] [place] INTERPRETATION (REFLEX [facility]) (09/05/2018 10:54 AM PHYSICIAN EXECUTIVE) Interpretation SEE NOTE [facility] Comment: [facility] [place] Thirty percent to 60% of patients with systemic sclerosis have Scl-70 (anti-topoisomerase antibodies), anti-centromere B antibodies, and/or anti-RNA polymerase III antibodies. Current [place] [employer] classification criteria for systemic sclerosis includes antibodies to Scl-70, centromere and RNA polymerase III. Scl-70 antibody positivity is found in 20-60% of patients with diffuse cutaneous scleroderma, and 31-36% of Scl-70 antibody patients have limited scleroderma. Scl-70 positivity is associated with scleroderma pulmonary disease. Centromere B antibody positivity is found in 64-95% of patients with a limited form of cutaneous systemic sclerosis ; patients may present with "CREST" syndrome, a complex of subcutaneous calcinosis, Raynaud's phenomenon, esophageal dysmotility, sclerodactyly, and telangiectasias. Scl-70 and centromere B antibodies are almost mutually exclusive, being present simultaneously in less than 0.5% of patients with systemic sclerosis. The rare patient with both antibodies typically has diffuse subcutaneous sclerosis and features of CREST. RNA polymerase III antibodies are >99% specific for systemic sclerosis and are associated with diffuse cutaneous disease and high risk for scleroderma renal crisis, but a low incidence of severe pulmonary fibrosis. While absence of these antibodies does not rule out a diagnosis of scleroderma, consideration should be given to diseases associated with the other autoantibody markers included in the KIRK IFA screen. Narrative Performed At FASTING:YES [facility] FASTING: YES Resulting Agency Comment Performing Organization Information: Site ID: EZ Name: [facility] [place], Address: [address] [place] [phone] Director: Oanh Barragan MD,PhD,VASILE Performing Organization Address City/[facility]/Zipcode Phone Number [facility] [address] [place] [address] [phone] [facility] [place] CENTROMERE B ANTIBODY (09/05/2018 10:54 AM PHYSICIAN EXECUTIVE) Centromere antibody <1.0 NEG <1.0 NEGATIVE AI [facility] Narrative Performed At FASTING:YES [facility] FASTING: YES Resulting Agency Comment Performing Organization Information: Site ID: EZ Name: [facility], Address: [address] [place] [phone] Director: Oanh Barragan MD,PhD,VASILE Performing Organization Address [facility] Hospitalcode Phone Number [facility] [employer] [facility]/GONZALEZ [address] [place] [address] [phone] [facility] [place] Scl-70 antibody (09/05/2018 10:54 AM PHYSICIAN EXECUTIVE) Scleroderma SCL-70 Ab <1.0 NEG <1.0 NEGATIVE AI [facility] Narrative Performed At FASTING:YES [facility] FASTING: YES Resulting Agency Comment Performing Organization Information: Site ID: EZ Name: [facility], Address: [address] [place] [phone] Director: Oanh Barragan MD,PhD,VASILE Performing Organization Address [facility] Hospital[facility] Phone Number [facility] [employer]ONZ[facility] [address] [place] [address] [phone] [facility] [place] KIRK SCREEN, IFA (09/05/2018 10:54 AM PHYSICIAN EXECUTIVE) KIRK screen POSITIVE (A) NEGATIVE [facility] [place] Comment: KIRK IFA is a first line screen for detecting the presence of up to approximately 150 autoantibodies in various autoimmune diseases. A positive KIRK IFA result is suggestive of autoimmune disease and reflexes to titer and pattern. Further laboratory testing may be considered if clinically indicated. Visit Physician FAQs for interpretation of all antibodies in the [place], prevalence, and association with diseases at http://education.[employer]/faq/WWI204 Narrative Performed At FASTING:YES [facility] FASTING: YES Resulting Agency Comment Performing Organization Information: Site ID: EZ Name: [facility], Address: [address] [place] [address] Director: Oanh Barragan MD,PhD,VASILE Performing Organization Address City/State/Zipcode Phone Number [facility] [employer] [address] [place] [address] [facility] [place] ANCA Screen with MPO and PR3, with Reflex to ANCA Titer (09/05/2018 10:54 AM PHYSICIAN EXECUTIVE ) ANCA screen NEGATIVE NEGATIVE [facility] Comment: [employer] [place] ANCA Screen includes evaluation for p-ANCA, c-ANCA and atypical p-ANCA. A positive ANCA screen reflexes to titer and pattern(s), e.g., cytoplasmic pattern (c-ANCA), perinuclear pattern (p-ANCA), or atypical p-ANCA pattern. c-ANCA and p-ANCA are observed in vasculitis, whereas atypical p-ANCA is observed in IBD (Inflammatory Bowel Disease). Atypical p-ANCA is detected in about 55% to 80% of patients with ulcerative colitis but only 5% to 25% of patients with Crohn's disease. Myeloperoxidase Ab <1.0 <1.0 AI [facility] Comment: [employer] [place] <1.0 AI No Antibody Detected > or=1.0 AI Antibody Detected Autoantibodies to myeloperoxidase (MPO) are commonly associated with the following small-vessel vasculitides: microscopic polyangiitis, polyarteritis nodosa, Churg-Ger syndrome, necrotizing and crescentic glomerulonephritis and occasionally granulomatosis with polyangiitis (GPA, Malcolm's). The perinuclear IFA pattern, (p-ANCA) is based largely on autoantibody to myeloperoxidase which serves as the primary antigen. These autoantibodies are present in active disease. NV-3 (protease) <1.0 <1.0 AI [facility] Comment: [employer] [place] <1.0 AI No Antibody Detected > or=1.0 AI Antibody Detected Autoantibodies to proteinase-3 (NV-3) are accepted as characteristic for granulomatosis with polyangiitis (GPA, Malcolm's), and are detectable in 95% of the histologically proven cases. The cytoplasmic IFA pattern, (c-ANCA), is based largely on autoantibody to NV-3 which serves as the primary antigen. These autoantibodies are present in active disease. Specimen Blood Narrative Performed At FASTING:YES [facility] FASTING: YES Resulting Agency Comment Performing Organization Information: Site ID: EZ Name: [facility]/Lisa [facility] [place], Address: [address] [place] [phone] Director: Oanh Barragan MD,PhD,VASILE Performing Organization Address [facility] Hospitalcode Phone Number [facility] MYKE BROOKS/LISA [address] [place] [phone] [facility] [place] [facility] Vitamin B12 and Folate (09/05/2018 10:54 AM PHYSICIAN EXECUTIVE) Vitamin B12 338 200 - 1,100 pg/mL [facility] [place] Comment: Please Note: Although the reference range for vitamin B12 is 200-1100 pg/mL, it has been reported that between 5 and 10% of patients with values between 200 and 400 pg/mL may experience neuropsychiatric and hematologic abnormalities due to occult B12 deficiency; less than 1% of patients with values above 400 pg/mL will have symptoms. Folate >24.0 ng/mL [facility] [place] Comment: Reference Range Low: <3.4 Borderline:3.4- 5.4 Normal:> 5.4 Specimen Blood Narrative Performed At FASTING:YES [facility] FASTING: YES Resulting Agency Comment Performing Organization Information: Site ID: RGA [facility]: [facility] Address: [address] [place] [phone] Director: Kati Lucas Performing Organization Address [facility] Hospitalcode Phone Number [place]KE [place] [address] Lyme total Ab w reflex (09/05/2018 10:54 AM PHYSICIAN EXECUTIVE) Lyme Ab <0.90 index [facility] [facility] Comment: Index Interpretation -------- < 0.90 Negative 0.90-1.09 Equivocal > 1.09 Positive As recommended by the Food and Drug Administration (FDA), all samples with positive or equivocal results in a Borrelia burgdorferi antibody screen will be tested using a blot method. Positive or equivocal screening test results should not be interpreted as truly positive until verified as such using a supplemental assay (e.g., B. burgdorferi blot). The screening test and/or blot for B. burgdorferi antibodies may be falsely negative in early stages of Lyme disease, including the period when erythema migrans is apparent. Specimen Blood Narrative Performed At FASTING:YES [facility] FASTING: YES Resulting Agency Comment Performing Organization Information: Site ID: IG Name: [facility] Address: [address] [place] [phone] Director: Dr. Sg Teran Performing Organization Address City/[facility] Hospitalcode Phone Number [facility] MYKE BROOKS[address] [address] ANTINUCLEAR ANTIBODIES TITER AND PATTERN (09/05/2018 10:54 AM PHYSICIAN EXECUTIVE) KIRK titer 1:320 (H) titer [facility] Comment: Reference Ranges for Anti-Nuclear Ab Titer: <1:40Negative 1:40-1:80Low Antibody Level >1:80Elevated Antibody Level KIRK pattern NUCLEOLAR [facility] [employer] Comment: Nucleolar pattern is associated with systemic sclerosis (scleroderma), systemic sclerosis/polymyositis overlap and Sjogren's syndrome. Narrative Performed At FASTING:YES [facility] FASTING: YES Resulting Agency Comment Performing Organization Information: Site ID: EZ Name: [facility] [place], Address: [address] [place] [phone] Director: Oanh Barragan MD,PhD,VASILE Performing Organization Address [facility] Hospitalcode Phone Number [facility] [address] [place] [phone] [facility] [place] Thyroid Panel With TSH (09/05/2018 10:54 AM PHYSICIAN EXECUTIVE) T3 uptake 23 22 - 35 % [facility] [place] T4 10.0 5.1 - 11.9 mcg/dL [facility] [place] Free T4 index 2.3 1.4 - 3.8 [facility] [employer] [place] TSH 2.18 mIU/L [facility] [employer] [place] Comment: Reference Range > or=20 Years0.40-4.50 Ranges First trimester0.26-2.66 Second trimester 0.55-2.73 Third trimester0.43-2.91 Specimen Blood Narrative Performed At FASTING:YES [facility] FASTING: YES Resulting Agency Comment Performing Organization Information: Site ID: RGA Name: [facility] Address: [address] [place] [phone] Director: Kati Lucas Performing Organization Address [facility] [place] [address] HIV-1 RNA, quantitative RT, PCR (09/05/2018 10:54 AM PHYSICIAN EXECUTIVE) Copies/mL <40 <40 copies/mL [facility] Comment: [facility] Not Detected CHANTILLY Log copies/mL (ULTRA) <1.60 <1.60 log cps/mL [facility] Comment: [facility] Not Detected CHANTILLY This test was performed using the NOBLE Real Time (TM) HIV-1 Test Kit ([employer] Specimen Blood Narrative Performed At FASTING:YES [facility] FASTING: YES Resulting Agency Comment Performing Organization Information: Site ID: [facility] Name: [facility] Address: [address] [place] [phone] Director: Ben Edmond M.D.,PhD Performing Organization Address [facility] Hospitalco[facility] Phone Number [facility] [address] [place] [address] WOLSEY Sedimentation rate (09/05/2018 10:54 AM PHYSICIAN EXECUTIVE) Sedimentation rate 51 (H) < OR=20 mm/h [facility] [place] Specimen Blood Narrative Performed At FASTING:YES [facility] FASTING: YES Resulting Agency Comment Performing Organization Information: Site ID: RGA Name: [facility] Address: [address] [place] [phone] Director: Kati Lucas Performing Organization Address [facility] Hospitalco[facility] Phone Number [facility] [address] [address] Angiotensin converting enzyme (09/05/2018 10:54 AM PHYSICIAN EXECUTIVE) Angiotensin converting enzyme 24 9 - 67 U/L [facility] II Specimen Blood Narrative Performed At FASTING:YES [facility] FASTING: YES Resulting Agency Comment Performing Organization Information: Site ID: IG [facility]: [facility] Address: [address] [place] [address] Director: Dr. Sg Teran Performing Organization Address City/[facility]/Zipcode Phone Number [facility] [address] [place] [address] CRP high sensitivity (09/05/2018 10:54 AM PHYSICIAN EXECUTIVE) CRP, high sensitivity 51.1 (H) mg/L [facility] Comment: II Verified by repeat analysis. Persistent elevation, upon retesting, may be associated with infection and inflammation according to AHA/CDC guidelines. For ages >17 Years: hs-CRP mg/LRisk According to AHA/CDC Guidelines <1.0 Lower relative cardiovascular risk. 1.0-3.0Average relative cardiovascular risk. 3.1-10.0 Higher relative cardiovascular risk. Consider retesting in 1 to 2 weeks to exclude a benign transient elevation in the baseline CRP value secondary to infection or inflammation. >10.0Persistent elevation, upon retesting, may be associated with infection and inflammation. Specimen Blood Narrative Performed At FASTING:YES [facility] FASTING: YES Resulting Agency Comment Performing Organization Information: Site ID: IG [facility]: [facility] Address: [address] [place] [phone] Director: Dr. Sg Teran Performing Organization Address [facility] Hospitalcode Phone Number [facility] [address] [place] [address] after 10/08/2017 Insurance Payer Benefit Plan / Group Subscriber ID Type Phone Address [facility] OPEN ACCESS/NETWORK xxxxxxxxxxx HMO (Work) Advance Directives Patient has advance care planning documents on file. For more information, please contact:[place] [address]
--- OUTSIDE RECORDS SUMMARY | 2018-10-09 20:13 | XMS REPORT | Summary of Care ---
:1975 Author Organization [facility] Primary [facility] [place] Address [address], [place] [address]- Encounter HQ Encntr_alikevin(FIN) [phone] Date(s): 10/06/18 - 10/07/18 [facility] Primary [facility] [place] [id number] [place] [address] [place] [address] [phone] Vital Signs No data available for this section Problem List Condition Effective Dates Status Health Status Informant Amnesia1 07/03/13 Active Anemia2 Active Benign hypertension(Confirmed)3 12/28/12 Active Constipation4 01/26/13 Active Depressive disorder(Confirmed)5 12/20/13 Active Fatigue6 12/28/12 Active Gastritis(Confirmed) Active Generalized abdominal pain7 12/28/12 Active Headache8 12/28/12 Active Hyperglycemia9 01/03/13 Active Ldlgzvlvlftedf61 01/03/13 Active Long-term drug gkefzco13 08/22/13 Active Low back pain12 01/03/14 Active Vajeegbepcd53 07/03/13 Active Obesity(Confirmed) Active Obstructive sleep apnea, Active adult(Confirmed) Positional 07/03/13 Active Tcmlyyqfgrw68 01/03/13 Active Edema(Confirmed) Active Okipebe88 07/24/14 Active Systolic axdafm26 07/24/14 Active Vitamin D bfqvwitsvp35 01/03/13 Active 1Data migrated from [employer] on 12/15/14.2Data migrated from [employer] on 12/15/14.3Data migrated from [employer] on 12/15/14.4Data migrated from [employer] on 12/15/14.5Data migrated from [employer] on 12/15/14.6Data migrated from [employer] on 12/15/14.7Data migrated from [employer] on 12/15.8Data migrated from [employer] on 12/15/14.9Data migrated from [employer] on 12/15/14.10Data migrated from [employer] on 12/15/14.11Data migrated from [employer] on 12/15/14.12Data migrated from [employer] on .13Data migrated from [employer] on 12/15/14.14Data migrated from [employer] on 12/15/14.15Data migrated from [employer] on 12/15/14.16Data migrated from [employer] on 12/15/14.17Data migrated from [employer] on .18Data migrated from [employer] on 12/15/14. Allergies, Adverse Reactions, Alerts Substance Reaction Severity Status NKDA Active Medications hydrALAZINE 50 mg oral tablet 50 mg=1 tab, PO, BID, # 60 tab, 3 Refill(s), Pharmacy: [facility]/pharmacy #[id number] Start Date: 10/06/18 Stop Date: 02/03/19 Status: Ordered Results No data available for this section Immunizations No data available for this section Procedures Procedure Date Related Diagnosis Body Site Status Breast reduction, bilateral Completed Exploration of gallbladder Completed Manipulation of interphalangeal joint of Completed foot - non-surgical Social History Social History Type Response Substance Abuse Use: None. Employment/School Status: Employed. 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 Alcohol Never Smoking Status Never smoker; Type: Cigars; Exposure to Tobacco Smoke None; Cigarette Smoking Last 365 Days No; Reg Smoking Cessation Counseling No entered on: 09/26/18 Assessment and Plan No data available for this section
--- OUTSIDE RECORDS SUMMARY | 2018-10-09 20:13 | XMS REPORT | Continuity of Care Document ---
:1975 Author Organization Interface Problems Problem Status Onset Classification Date Comments Source Date Reported Sleep apnea, 03/14/20 09/10/2018 [facility] unspecified 18 Rehab NORBERTO Active 02/15/20 MH [facility] 18 Rehab Z12.39 - Active 08/30/19 [facility] ENCOUNTER FOR 16 [facility] OTH SCREENING FO Syncope<sup>16</ Active 07/24/19 Problem 10/09/2018 Data migrated Medical sup> 15 from [facility], [facility]ric[facility] on [facility] 12/15/14. [facility] Systolic Active 07/24/19 Problem 10/09/2018 Data migrated Medical murmur<sup>17</s 15 from [facility], up> Centricity on [facility] 12/15/14. [facility] Low back Active 01/04/20 Problem 10/09/2018 Data migrated Medical pain<sup>12</sup 14 from [facility],MH > Centricity on OPID [facility] 12/15/14. [facility] Depressive Active 12/21/19 Problem 10/09/2018 Data migrated MH Medical disorder<sup>5</ 14 from [facility],MH sup> Centricity on OP[facility] 12/15/14. [facility] Long-term drug Active 08/22/19 Problem 10/09/2018 Data migrated Medical therapy<sup>11</ 14 from [facility],MH sup> Centricity on OPID [facility] 12/15/14. [facility] Amnesia<sup>1</s Active 07/03/20 Problem 10/09/2018 Data migrated Medical up> 13 from [facility],MH Centricity on OP[facility] 12/15/14. [facility] Menorrhagia<sup> Active 07/03/20 Problem 10/09/2018 Data migrated MH Medical 13</sup> 13 from [facility],MH Centricity on OP[facility] 12/15/14. [facility], [facility] Positional Active 07/03/20 Problem 10/09/2018 Data migrated MH Medical vertigo<sup>14</ 13 from [facility],MH sup> Centricity on OP[facility] 12/15/14. [facility], [facility], [facility] Constipation<sup Active 01/27/20 Problem 10/09/2018 Data migrated MH Medical >4</sup> 13 from [facility],MH Centricity on OP[facility] [place] 12/15/14. [facility], [facility], [facility] Hyperglycemia<pineda Active 01/04/20 Problem 10/09/2018 Data migrated MH Medical p>9</sup> 13 from [facility],MH Centricity on OP[facility] 12/15/14. [facility], [facility], [facility] Hyperlipidemia<s Active 01/04/20 Problem 10/09/2018 Data migrated MH Medical up>10</sup> 13 from [facility],MH Centricity on OP[facility] 12/15/14. [facility], [facility] Proteinuria<sup> Active 01/04/20 Problem 10/09/2018 Data migrated MH Medical 15</sup> 13 from [facility],MH Centricity on OP[facility] 12/15/14. [facility], [facility] Vitamin D Active 01/04/20 Problem 10/09/2018 Data migrated MH Medical deficiency<sup>1 13 from [facility],MH 8</sup> Centricity on OP[facility] 12/15/14. [facility], [facility] Benign Active 12/29/19 Problem 10/09/2018 Data migrated MH Medical hypertension<sup 13 from [facility],MH >3</sup> Centricity on OP[facility] 12/15/14. [facility], [facility] Fatigue<sup>6</s Active 12/29/19 Problem 10/09/2018 Data migrated MH Medical up> 13 from [facility],MH Centricity on OP[facility] 12/15/14. [facility], OPID [facility], [facility] Generalized Active 12/29/19 Problem 10/09/2018 Data migrated Medical abdominal 13 from Group, pain<sup>7</sup> Centricity on OPID [place] 12/15/14. [facility], OPID [facility], [facility] Headache<sup>8</ Active 12/29/19 Problem 10/09/2018 Data migrated Medical sup> 13 from [facility], Centricity on OPID [facility] 12/15/14. [facility], OPID [facility], [facility] Anemia<sup>2</pineda Active Problem 10/09/2018 Data migrated Medical p> from [facility], Centricity on OPID [facility] 12/15/14. [facility], OPID [facility], [facility] Obesity Active Problem 10/09/2018 [facility], [facility] [place], OP[facility], [facility] Obstructive Active Problem 10/09/2018 Medical sleep apnea, Group, adult [facility] Essential 09/10/2018 [facility] hypertension Rehab Gastritis Active Problem 10/09/2018 Medical Group Edema Active Problem 10/09/2018 Medical Group Medications Medication Details Route Status Patient Ordering Order Source Instructions Provider Date Hydralazine 50 mg=1 Active Hydrochloride 50 MG tab, PO, 2019 Medical Oral Tablet BID, # 60 Group tab, 3 Refill(s), Pharmacy: [facility]/pharmac y #[id number] Ventolin HFA 90 2 puff, Active mcg/inh inhalation INHALER, 2019 Medical aerosol with adapter Q6H, PRN Group wheezing, coughing, or shortness of breath, # 8 gm, 1 Refill(s), Pharmacy: [facility]/pharmac y #[id number] bisoprolol 10 mg oral 10 mg=1 Active tablet tab, PO, 2019 Medical Daily, # 30 Group tab, 2 Refill(s), Pharmacy: [facility]/pharmac y #[id number] Famotidine 20 MG Oral 20 mg=1 Active Tablet [Pepcid] tab, PO, 2019 Medical BID, # 60 Group tab, 0 Refill(s) Acetaminophen 300 MG 1 tab, PO, Active / Codeine Phosphate Q6H, 0 2019 Medical 30 MG Oral Tablet Refill(s) Group [Tylenol with Codeine #3] Meclizine 25 mg=1 Active 03/18/ MH tab, PO, 2018 Medical PRN Group Dizziness Hydrochlorothiazide 1 tab, PO, No Longer 03/09/ MH 25 MG / Losartan Daily, X 90 Active 2018 Medical Potassium 100 MG Oral day, # 90 Group Tablet tab, 1 Refill(s), Pharmacy: [facility]/pharmac y #[id number] Hydrochlorothiazide 1 tab, PO, No Longer 02/08/ MH 25 MG / Losartan Daily, X 30 Active 2018 Medical Potassium 100 MG Oral day, # 30 Group Tablet tab, 1 Refill(s), Pharmacy: [facility]/pharmac y #7164 Hydrochlorothiazide 1 tab, PO, Active 25 MG / valsartan 320 Daily, # 90 2018 Medical MG Oral Tablet tab, 1 Group Refill(s), Pharmacy: [facility]/pharmac y #7164 Fluticasone 1 spray, Active propionate 0.05 NASAL, BID, 2018 Medical MG/ACTUAT Metered # 16 gm, 2 Group Dose Nasal Onset Refill(s), Pharmacy: [facility]/pharmac y #[id number] meclizine 25 mg oral 25 mg=1 No Longer 09/24/ MH tablet tab, PO, Active 2018 Medical Daily, PRN Group vertigo, X 30 day, # 21 tab, 1 Refill(s), Pharmacy: [facility]/pharmac y #[id number] meclizine 25 mg oral 25 mg=1 Inactive MH tablet tab, PO, 2018 Medical PRN, 0 Group Refill(s) Hydrochlorothiazide 1 tab, PO, Active 07/15/ MH 25 MG / valsartan 320 Daily, # 90 2017 Medical MG Oral Tablet tab, 1 Group Refill(s), Pharmacy: [facility]/pharmac y #[id number] Hydrochlorothiazide 1 tab, PO, No Longer 07/14/ MH 25 MG / valsartan 320 Daily, X 90 Active 2017 Medical MG Oral Tablet day, # 90 Group tab, 1 Refill(s), Pharmacy: [facility] #[id number] Allergies, Adverse Reactions, Alerts Substance Category Reaction Severity Reaction Status Date Comments Source type Reported Immunizations Immunization Date Given Site Status Last Updated Comments Source Results Order Name Results Value Reference Date Interpretation Comments Source Range Breast Breast - BREAST LIMITED UNI US/R 09/11 - [facility] Limited Limited /2015 - [facility] Uni US Uni US ULTRASOUND OF RIGHT BREAST: 09/11/2015 [facility] CLINICAL: Abn Mammo. Read by: Sara Ogden MD Dictated Date/time: 09/11/15 12:06 Electronically Signed by: Sara Ogden MD 09/11/15 12:06 FINAL REPORT Comparison is made to exams dated: 09/11/2015 mammogram - [facility] and 09/02/2015 mammogram - [facility]. Real-time ultrasound of the right breast was performed on the areas of interest. There is a benign 0.4 cm x 0.5 cm x 0.2 cm lobulated lymph node in the right breast at 12 o'clock middle depth 10 cm from the nipple. This lobulated lymph node is hypoechoic with fatty hilum. Thi s correlates with mammography findings. Color flow imaging demonstrates that there is no vascularity present. An incidental benign subcentimeter cyst is noted at the 12:00 position, 5 cm from the nipple. No abnormalities were seen sonographically in the right breast upon targeted evaluation. IMPRESSION: BENIGN There is no sonographic evidence of malignancy in the right breast upon targeted evaluation. The 0.5 cm 12:00 right breast intramammary lymph node corresponds to recent mammographic findings and is benign. A screening mammogram in one year is recommended. Findings and recommendations were discussed with the patient by Dr. Ogden at the time of this study. Sara Ogden M.D. rn/:09/11/2015 12:06:21 Permit Specialist: Margi Dillon, [facility] This exam was dictated and interpreted by [id number] at [facility] [place]. letter sent: Benign Right Ultrasound BI-RADS: 2 Benign Digital Digital - DIGITAL MAMMO DX UNI MA W DOMINGO/R 09/11 - OP[facility] Mammo DX Mammo DX /2015 - [facility] Uni MA w Uni MA w UNILATERAL RIGHT DIGITAL DIAGNOSTIC MAMMOGRAM 3D/2D WITH CAD: 09/11/2015 [facility] domingo domingo CLINICAL: Abnormal Mammogram/Same. Read by: Sara Ogden MD Dictated Date/time: 09/11/15 09:08 Electronically Signed by: Sara Ogden MD 09/11/15 09:08 FINAL REPORT 2D digital mammographic images and 3D digital tomosynthesis images were obtained in the CC and MLO projections. Current study was evaluated with a Computer Aided Detection (CAD) system. Comparison is made to exam dated: 09/02/2015 mammogram - [facility]. There are scattered fibroglandular densities in the right breast. There is a 0.6 cm oval mass with a circumscribed margin in the right breast at 11 o'clock posterior depth 10 cm from the nipple. No other significant masses or calcifications are seen in the breast. IMPRESSION: INCOMPLETE: NEEDS ADDITIONAL IMAGING EVALUATION The 0.6 cm oval mass in the right breast likely represents an intramammary node and is indeterminate. An ultrasound is recommended. Ultrasound is to immediately follow; please see the accompanying report for further details. Sara Ogden M.D. rn/:09/11/2015 09:08:19 Permit Specialist: Krista MCKOY)(Jakub), [facility] This exam was dictated and interpreted by [id number] at [facility]. Mammogram BI-RADS: 0 Indeterminate Digital Digital - DIGITAL MAMMO SCREENING ZACHARY HINOJOSA 09/02 - MH OPID Mammo Mammo /2015 - Camila Screening Screening BILATERAL DIGITAL SCREENING MAMMOGRAM WITH CAD: 2015 Zachary Sharma MA CLINICAL: Screening. Read by: Chris Barba DO Dictated Date/time: 09/03/15 10:26 Electronically Signed by: Chris Barba DO 09/03/15 10:26 FINAL REPORT Current study was evaluated with a Computer Aided Detection (CAD) system. No comparison exams are available. There are scattered fibroglandular densities in both breasts. There are benign appearing scattered calcifications in both breasts. There is a 7 mm oval asymmetry in the right breast at 12 o'clock posterior depth 12 cm from the nipple. No other suspicious masses, calcifications or additional significant findings are demonstrated within either breast. IMPRESSION: INCOMPLETE: NEEDS ADDITIONAL IMAGING EVALUATION The 7 mm oval asymmetry in the right breast may represent a lymph node and is indeterminate. A diagnostic mammogram of the right breast, including 3D tomosynthesis, is recommended for further evaluation. An ultrasound may also be needed at time of diagnostic work-up. Chrisjessica Barba D.O., mdl/:09/03/2015 10:26:57 Permit Specialist: Zuhair Kemp [place] [id number] [address] [address] [place] [id number]. letter sent: Additional Imaging Mammogram BI-RADS: 0 Indeterminate Vital Signs Vital Sign Value Date Comments Source BMI Calculated 38.52 09/26/2018 Medical Group Weight 105 09/26/2018 Medical Group Height 165.1 cm 09/26/2018 Medical Group Temperature Oral (F) 98.7 F 09/26/2018 Medical Group Heart Rate 76 09/26/2018 Medical Group Systolic (mm Hg) 156 09/26/2018 Medical Group Diastolic (mm Hg) 87 09/26/2018 Medical Group BMI Calculated 38.35 03/18/2018 Medical Group Height 165.1 cm 03/18/2018 Medical Group Weight 104.545 03/18/2018 Medical Group Heart Rate 79 03/18/2018 Medical Group Temperature Oral (F) 98.4 F 03/18/2018 Medical Group Respitory Rate 16 03/18/2018 Medical Group Systolic (mm Hg) 149 03/18/2018 Medical Group Diastolic (mm Hg) 89 03/18/2018 Medical Group BMI Calculated 37.04 02/08/2018 Medical Group Weight 104.091 02/08/2018 Medical Group Height 167.64 cm 02/08/2018 Medical Group Heart Rate 79 02/08/2018 Medical Group Temperature Oral (F) 98.6 F 02/08/2018 Medical Group Systolic (mm Hg) 152 02/08/2018 Medical Group Diastolic (mm Hg) 89 02/08/2018 Medical Group BMI Calculated 37.02 09/24/2017 Medical Group Weight 100.909 09/24/2017 Medical Group Height 165.1 cm 09/24/2017 Medical Group Systolic (mm Hg) 146 09/24/2017 Medical Group Diastolic (mm Hg) 88 09/24/2017 Medical Group Temperature Oral (F) 98.4 F 09/24/2017 Medical Group Heart Rate 76 09/24/2017 Medical Group Encounters Location Location Encounter Encounter Reason Attending ADM DC Status Source Details Type Number For Provider Date Date Visit Outpatient [id number] [facility]/04 [facility] [place] [facility] [id number] THONY 04/23 [facility] 1 [facility] [place] [facility] [id number] THONY 04/24 Active [facility] 2 [facility] Outpatient [id number] THONY 08/09 Active [facility] 3 [facility] Outpatient [id number] ROCÍO OSCAR 08/16 Active [facility] [place] [facility] Outpt Diag [id number] Rocío Oscar 09/02 09/03 [facility] Outpatient Services [facility] Outpt Diag [id number] Rocío Oscar 09/11 09/12 MH [facility] Outpatient [facility] [place] [facility] [id number] THONY 07/13 Active [facility] 5 [facility] [place] Outpatient [id number] THONY 11/25 Active [facility] 6 [facility] Phone [id number] 07/13 07/15 Primary Message [facility] [place] [facility] Phone [id number] 07/15 07/17 Primary Message [facility] [place] Outpatient [id number] THONY 09/24 Active [facility] 7 [facility] Outpatient [id number] Thony 09/24 09/25 MH Primary 7 [facility] [place] [facility] Phone [id number] 10/21 10/23 Primary Message [facility] [place] [facility] Phone [id number] 12/21 12/23 Primary Message [facility] [place] [facility] Phone [id number] 01/04 01/06 Primary Message [facility] [place] Outpatient [id number] THONY 01/21 Active [facility] 8 [facility] Ambulatory [id number] Thony 01/21 01/21 Primary Pre-Reg 8 [facility] [place] [facility] Outside [id number] 01/21 01/23 Primary Medical Medical Care Records [facility] [place] Outpatient [id number] THONY 02/08 Active [facility] 9 [facility] Outpatient [id number] Thony 02/08 02/09 MH Primary 9 [facility] Outpatient [id number] Thony 02/19 02/19 MH [place] Andrew 4 [facility] Outpatient [id number] Thony 02/21 02/21 MH [place] [place] 5 [facility] Re[facility] Phone [id number] 02/28 03/02 Primary Message [facility] Phone [id number] 03/09 03/11 Primary Message [facility] Outside [id number] 03/09 03/11 Primary Medical Medical Care Records [facility] [place] Outpatient [id number] 03/18 Active [facility] 0 [facility] Sleep Outpatient [id number] 03/18 Lab Camila 0 Medical Group Outpatient [id number] 05/27 Active [facility] 1 [place] [facility] [id number] THONY 06/10 Active [facility] 3 [facility] [place] Outpatient [id number] 07/15 Active [facility] 2 [place] Outpatient [id number] THONY 09/26 Active [facility] 5 [facility] Outpatient [id number] Thony 09/26 09/27 MH Primary 5 [facility] Between [id number] 09/29 09/30 Primary Visit [facility] Between [id number] 10/03 10/04 Primary Visit [facility] Phone [id number] 10/06 10/08 Primary Message [facility] [place] Outpatient [id number] 10/14 Active [facility] 4 [place] Procedures Procedure Code Date Perfomer Comments Source Breast reduction, [id number] Medical bilateral Group Exploration of [id number] Medical gallbladder Group Manipulation of [id number] Medical interphalangeal joint Group of foot - non-surgical Breast reduction, [id number] MH OPID bilateral [place] Exploration of [id number] MH OP[facility] gallbladder [place] Manipulation of [id number] MH OPID interphalangeal joint [place] of foot - non-surgical Breast reduction, 186230195 MH OPID [place]ila bilateral Exploration of [id number] MH OPID [place] gallbladder Manipulation of [id number] MH OPID [place] interphalangeal joint of foot - non-surgical Breast reduction, 884758226 MH [facility] bilateral Rehab Exploration of 715103056 MH [facility] gallbladder Rehab Manipulation of 913619116 MH [place] interphalangeal joint Rehab of foot - non-surgical
--- OUTSIDE RECORDS SUMMARY | 2018-10-09 20:14 | XMS REPORT | Summary of Care ---
:1975 Author Organization [facility] Primary Care [place] Address [address] [place] [address], [place] [address]- Encounter HQ Encntr_alias(FIN) [id number] Date(s): 07/13/17 - 07/14/17 [facility] Primary Care [place] [address] [place] [address], [place] [address] - [phone] Vital Signs No data available for this section Problem List Condition Effective Dates Status Health Status Informant Amnesia1 07/03/13 Active Anemia2 Active Benign hypertension3 12/28/12 Active Constipation4 01/26/13 Active Depressive disorder5 12/20/13 Active Fatigue6 12/28/12 Active Generalized abdominal pain7 12/28/12 Active Headache8 12/28/12 Active Hyperglycemia9 01/03/13 Active Eycsksjromsxvz46 01/03/13 Active Long-term drug rnvipxt97 08/22/13 Active Low back pain12 01/03/14 Active Mnuhlxfbddc08 07/03/13 Active Obesity(Confirmed) Active Positional wphyujs41 07/03/13 Active Iuzylmnfyib36 01/03/13 Active Traisku35 07/24/14 Active Systolic krawgy10 07/24/14 Active Vitamin D adfueuurvq87 01/03/13 Active 1Data migrated from [facility] [...] Substance Reaction Severity Status NKDA Active Medications hydrochlorothiazide-valsartan 25 mg-320 mg oral tablet 1 tab, PO, Daily, X 90 day, # 90 tab, 1 Refill(s), Pharmacy: [facility] #[id number] Start Date: 07/14/17 Stop Date: 07/15/17 Status: Completed Results No data available for this section Immunizations No data available for this section Procedures Procedure Date Related Diagnosis Body Site Breast reduction, bilateral Exploration of gallbladder Manipulation of interphalangeal joint of foot - non-surgical Social History Social History Type Response Smoking Status Never smoker; Exposure to Tobacco Smoke None; Cigarette Smoking Last 365 Days No; Reg Smoking Cessation Counseling No Assessment and Plan No data available for this section
--- OUTSIDE RECORDS SUMMARY | 2018-10-09 20:14 | XMS REPORT | Summary of Care ---
:1975 Author Organization [facility] Address [address] [facility] [place] [address]- Encounter HQ Encntr_alias(FIN) [id number] Date(s): 02/21/18 - 02/21/[address] [place] [address] US289 [phone] Encounter Diagnosis Sleep apnea, unspecified (Final) - 03/13/18 Essential (primary) hypertension (Final) - Discharge Disposition: Home or Self Care Attending Physician: Thony Diamond MD Referring Physician: Thony Diamond MD Vital Signs No data available for this section Problem List Condition Effective Dates Status Health Status Informant Amnesia1 07/03/13 Active Anemia2 Active Benign hypertension(Confirmed)3 12/28/12 Active Constipation4 01/26/13 Active Depressive disorder(Confirmed)5 12/20/13 Active Fatigue6 12/28/12 Active Generalized abdominal pain7 12/28/12 Active Headache8 12/28/12 Active Hyperglycemia9 01/03/13 Active Qupdgdvqrrhlag56 01/03/13 Active Long-term drug 08/22/13 Active Low back pain12 01/03/14 Active Wpysfrlhdkq17 07/03/13 Active Obesity(Confirmed) Active Obstructive sleep apnea, Active adult(Confirmed) Positional cdwaybb82 07/03/13 Active Gzxyvlqcguc26 01/03/13 Active Gsyflki17 07/24/14 Active Systolic yejoni40 07/24/14 Active Vitamin D vibmyubbyd83 01/03/13 Active 1Data migrated from [facility] [...] Substance Reaction Severity Status NKDA Active Medications No data available for this section Results No data available for this section Immunizations No data available for this section Procedures Procedure Date Related Diagnosis Body Site Status Breast reduction, bilateral Completed Exploration of gallbladder Completed Manipulation of interphalangeal joint of Completed foot - non-surgical Social History Social History Type Response Substance Abuse Use: None. Employment/School Status: Employed. 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 Alcohol Never Smoking Status Never smoker; Type: Cigars; Exposure to Tobacco Smoke None; Cigarette Smoking Last 365 Days No; Reg Smoking Cessation Counseling No entered on: 07/15/18 Assessment and Plan No data available for this section
--- OUTSIDE RECORDS SUMMARY | 2018-10-09 20:14 | XMS REPORT | Summary of Care ---
:1975 Author Organization [facility] Primary Care [place] Address [address], [place] [address]- Encounter HQ Encntr_alias(FIN) [id number] Date(s): 02/28/18 - 03/01/18 [facility] Care [place] [address] [place] [address], [place] [address] - [phone] Vital Signs No data available for this section Problem List Condition Effective Dates Status Health Status Informant Amnesia1 07/03/13 Active Anemia2 Active Benign hypertension(Confirmed)3 12/28/12 Active Constipation4 01/26/13 Active Depressive disorder(Confirmed)5 12/20/13 Active Fatigue6 12/28/12 Active Generalized abdominal pain7 12/28/12 Active Headache8 12/28/12 Active Hyperglycemia9 01/03/13 Active Hmnykdnrforyhf34 01/03/13 Active Long-term drug ijcuhcv35 08/22/13 Active Low back pain12 01/03/14 Active Ymuctkawmqj24 07/03/13 Active Obesity(Confirmed) Active Obstructive sleep apnea, Active adult(Confirmed) Positional jezxstr84 07/03/13 Active Oyanrktnwuv80 01/03/13 Active Tjmphoa22 07/24/14 Active Systolic oazvdq09 07/24/14 Active Vitamin D zgdntqgevx20 01/03/13 Active 1Data migrated from [facility] [...] Use: None. Employment/School Status: Employed. 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 Alcohol Never Smoking Status Never smoker; Type: Cigars; Exposure to Tobacco Smoke None; Cigarette Smoking Last 365 Days No; Reg Smoking Cessation Counseling No entered on: 07/15/18 Assessment and Plan No data available for this section
--- OUTSIDE RECORDS SUMMARY | 2018-10-09 20:14 | XMS REPORT | Summary of Care ---
:1975 Author Organization [facility] Primary [facility] [place] Address [address] [facility], [place] [address]- Encounter HQ Encntr_alikevin(FIN) [id number] Date(s): 01/04/18 - 01/05/18 [facility] [place] [address] [place] [address], [place] [address] - [phone] Vital Signs No data available for this section Problem List Condition Effective Dates Status Health Status Informant Amnesia1 07/03/13 Active Anemia2 Active Benign hypertension3 12/28/12 Active Constipation4 01/26/13 Active Depressive disorder5 12/20/13 Active Fatigue6 12/28/12 Active Generalized abdominal pain7 12/28/12 Active Headache8 12/28/12 Active Hyperglycemia9 01/03/13 Active Oncvwkmpmawwlh07 01/03/13 Active Long-term drug sybzsft69 08/22/13 Active Low back pain12 01/03/14 Active Whleaurmcgn61 07/03/13 Active Obesity(Confirmed) Active Positional muxkyca84 07/03/13 Active Icglwtbxsrf65 01/03/13 Active Lrxkbhc53 07/24/14 Active Systolic 07/24/14 Active Vitamin D 01/03/13 Active 1Data migrated from [employer] [...] mg oral tablet 1 tab, PO, Daily, # 90 tab, 1 Refill(s), Pharmacy: [facility]/pharmacy #[id number] Start Date: 01/05/18 Stop Date: 07/04/18 Status: Ordered Results No data available for [...] Reg Smoking Cessation Counseling No entered on: 09/24/17 Assessment and Plan No data available for this section
--- OUTSIDE RECORDS SUMMARY | 2018-10-09 20:14 | XMS REPORT | Summary of Care ---
:1975 Author Organization [facility] Address [address] [facility] [place] [address]- Encounter HQ Encntr_alias(FIN) [id number] Date(s): 02/18/18 - 02/18/[address] [place] [address] [phone] Attending Physician: Thony Diamond MD Referring Physician: Thony Diamond MD Vital Signs No data available for this section Problem List Condition Effective Dates Status Health Status Informant Amnesia1 07/03/13 Active Anemia2 Active Benign hypertension(Confirmed)3 12/28/12 Active Constipation4 01/26/13 Active Depressive disorder(Confirmed)5 12/20/13 Active Fatigue6 12/28/12 Active Generalized abdominal pain7 12/28/12 Active Headache8 12/28/12 Active Hyperglycemia9 01/03/13 Active Yryenyemshlznw06 01/03/13 Active Long-term drug oifegby17 08/22/13 Active Low back pain12 01/03/14 Active Zijhrfntwax72 07/03/13 Active Obesity(Confirmed) Active Obstructive sleep apnea, Active adult(Confirmed) Positional 07/03/13 Active Ohpbqfqbscu05 01/03/13 Active Vylxwkz67 07/24/14 Active Systolic ixmlqy79 07/24/14 Active Vitamin D eekwhnsrpw95 01/03/13 Active 1Data migrated from [employer] [...] Use: None. Employment/School Status: Employed. 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 Alcohol Never Smoking Status Never smoker; Type: Cigars; Exposure to Tobacco Smoke None; Cigarette Smoking Last 365 Days No; Reg Smoking Cessation Counseling No entered on: 07/15/18 Assessment and Plan No data available for this section
--- OUTSIDE RECORDS SUMMARY | 2018-10-09 20:14 | XMS REPORT | Summary of Care ---
:1975 Author Organization [facility] Primary Care [place] Address [address] [place] [address], [place] [address]- Encounter HQ Encntr_alias(FIN) [id number] Date(s): 07/15/17 - 07/16/17 [facility] Primary [facility] [place] [address] [place] [address], [place] [address] - [phone] Vital Signs No data available for this section Problem List Condition Effective Dates Status Health Status Informant Amnesia1 07/03/13 Active Anemia2 Active Benign hypertension3 12/28/12 Active Constipation4 01/26/13 Active Depressive disorder5 12/20/13 Active Fatigue6 12/28/12 Active Generalized abdominal pain7 12/28/12 Active Headache8 12/28/12 Active Hyperglycemia9 01/03/13 Active Qtfujxtciptalz58 01/03/13 Active Long-term drug bpsajml66 08/22/13 Active Low back pain12 01/03/14 Active Gjejomeemjj38 07/03/13 Active Obesity(Confirmed) Active Positional tkpenqz42 07/03/13 Active Wwgozaceyku24 01/03/13 Active Odvjilk80 07/24/14 Active Systolic vzodqn20 07/24/14 Active Vitamin D ckakmuwviz77 01/03/13 Active 1Data migrated from [employer] [...] Daily, # 90 tab, 1 Refill(s), Pharmacy: [facility]/pharmacy #[id number] Start Date: 07/15/17 Stop Date: 01/11/18 Status: Ordered Results No data available for [...]
--- OUTSIDE RECORDS SUMMARY | 2018-10-09 20:14 | XMS REPORT | Summary of Care ---
:1975 Author Organization [facility] Primary Care [place] Address [address], [place] [address]- Encounter HQ Richardntr_kendellkevin(FIN) [id number] Date(s): 09/24/17 - 09/24/17 [facility] Primary [place] [address], [place] [address] - [phone] Discharge Disposition: Home or Self Care Attending Physician: Thony Diamond MD Vital Signs Most recent to oldest [Reference Range]: 1 Height 165.1 cm (09/24/17 9:14 AM) Temperature Oral [96.4-99.1 DegF] 98.4 DegF (09/24/17 9:14 AM) Blood Pressure [90-140/60-90 mmHg] 146/88 mmHg *HI* (09/24/17 9:14 AM) Peripheral Pulse Rate [60-100 bpm] 76 bpm (09/24/17 9:14 AM) Weight 100.909 kg (09/24/17 9:14 AM) Body Mass Index 37.02 m2 (09/24/17 9:14 AM) Problem List Condition Effective Dates Status Health Status Informant Amnesia1 07/03/13 Active Anemia2 Active Benign hypertension3 12/28/12 Active Constipation4 01/26/13 Active Depressive disorder5 12/20/13 Active Fatigue6 12/28/12 Active Generalized abdominal pain7 12/28/12 Active Headache8 12/28/12 Active Hyperglycemia9 01/03/13 Active Yrxzbrcjyfjrod61 01/03/13 Active Long-term drug vukkhrp52 08/22/13 Active Low back pain12 01/03/14 Active Xzeqrskwsyk02 07/03/13 Active Obesity(Confirmed) Active Positional 07/03/13 Active Ubqajwxohvr82 01/03/13 Active Ticadwp86 07/24/14 Active Systolic zxkwda69 07/24/14 Active Vitamin D wqyooioshf86 01/03/13 Active 1Data migrated from [employer] [...] Substance Reaction Severity Status NKDA Active Medications fluticasone nasal 0.05 mg/inh spray 1 spray, NASAL, BID, # 16 gm, 2 Refill(s), Pharmacy: [facility] #[id number] Start Date: 09/24/17 Status: Orderedmeclizine 25 mg oral tablet 25 mg=1 tab, PO, PRN, 0 Refill(s) Start Date: 09/24/17 Stop Date: 09/24/17 Status: Discontinuedmeclizine 25 mg oral tablet 25 mg=1 tab, PO, Daily, PRN vertigo, X 30 day, # 21 tab, 1 Refill(s), Pharmacy: [facility]/pharmacy #[id number] Start Date: 09/24/17 Stop Date: 11/23/17 Status: Completed Results No data available for [...]
--- OUTSIDE RECORDS SUMMARY | 2018-10-09 20:14 | XMS REPORT | Summary of Care ---
:1975 Author Organization [facility] Primary Care [place] Address [address] [facility], [place] [address]- Encounter HQ Encntr_alias(FIN) [id number] Date(s): 12/21/17 - 12/22/17 [facility] Care [place] [address] [place] [address], [place] [address] - [phone] Vital Signs No data available for this section Problem List Condition Effective Dates Status Health Status Informant Amnesia1 07/03/13 Active Anemia2 Active Benign hypertension3 12/28/12 Active Constipation4 01/26/13 Active Depressive disorder5 12/20/13 Active Fatigue6 12/28/12 Active Generalized abdominal pain7 12/28/12 Active Headache8 12/28/12 Active Hyperglycemia9 01/03/13 Active Smjmheatbvwmsj12 01/03/13 Active Long-term drug ganumcp93 08/22/13 Active Low back pain12 01/03/14 Active Oxnpotykvts85 07/03/13 Active Obesity(Confirmed) Active Positional xhfjqfy68 07/03/13 Active Ttxkqiihnty00 01/03/13 Active Aoigmxk48 07/24/14 Active Systolic 07/24/14 Active Vitamin D xnqquuqixh12 01/03/13 Active 1Data migrated from [employer] [...]
--- OUTSIDE RECORDS SUMMARY | 2018-10-09 20:15 | XMS REPORT | Summary of Care ---
:1975 Author Organization [facility] Primary Care [place] Address [address] [facility], [place] [address]- Encounter HQ Encntr_marya(FIN) [id number] Date(s): 01/21/18 - 01/21/18 [facility] Primary [place] [address] [place] [address], [place] [address] - [phone] Attending Physician: Thony Diamond MD Vital Signs No data available for this section Problem List Condition Effective Dates Status Health Status Informant Amnesia1 07/03/13 Active Anemia2 Active Benign hypertension3 12/28/12 Active Constipation4 01/26/13 Active Depressive disorder5 12/20/13 Active Fatigue6 12/28/12 Active Generalized abdominal pain7 12/28/12 Active Headache8 12/28/12 Active Hyperglycemia9 01/03/13 Active Aanditmoytxfuj62 01/03/13 Active Long-term drug 08/22/13 Active Low back pain12 01/03/14 Active Udngakyzwba98 07/03/13 Active Obesity(Confirmed) Active Positional svscydf38 07/03/13 Active Edbysbppobm30 01/03/13 Active Uuwvhue23 07/24/14 Active Systolic sfgreb10 07/24/14 Active Vitamin D jpgnagwpwn77 01/03/13 Active 1Data migrated from [employer] [...]
--- OUTSIDE RECORDS SUMMARY | 2018-10-09 20:15 | XMS REPORT | Summary of Care ---
:1975 Author Organization [facility] Primary Care [place] Address [address] [facility], [place] [address]- Encounter HQ Encntr_alikevin(FIN) [id number] Date(s): 03/09/18 - 03/10/18 [facility] [place] [address] [place] [address], [place] [address] - [phone] Vital Signs No data available for this section Problem List Condition Effective Dates Status Health Status Informant Amnesia1 07/03/13 Active Anemia2 Active Benign hypertension(Confirmed)3 12/28/12 Active Constipation4 01/26/13 Active Depressive disorder(Confirmed)5 12/20/13 Active Fatigue6 12/28/12 Active Gastritis(Confirmed) Active Generalized abdominal pain7 12/28/12 Active Headache8 12/28/12 Active Hyperglycemia9 01/03/13 Active Zynuvnujaoydle39 01/03/13 Active Long-term drug ioanvnt94 08/22/13 Active Low back pain12 01/03/14 Active Rcdykfozpvl73 07/03/13 Active Obesity(Confirmed) Active Obstructive sleep apnea, Active adult(Confirmed) Positional 07/03/13 Active Uuritblowvf53 01/03/13 Active Edema(Confirmed) Active Pitemvt40 07/24/14 Active Systolic glivof09 07/24/14 Active Vitamin D htswxazyqo79 01/03/13 Active 1Data migrated from [employer] [...] Substance Reaction Severity Status NKDA Active Medications hydrochlorothiazide-losartan 25 mg-100 mg oral tablet 1 tab, PO, Daily, X 90 day, # 90 tab, 1 Refill(s), Pharmacy: [facility]/pharmacy #[id number] Start Date: 03/09/18 Stop Date: 04/14/18 Status: Completed Results No data available for this section Immunizations No data available for this section Procedures Procedure Date Related Diagnosis Body Site Status Breast reduction, bilateral Completed Exploration of gallbladder Completed Manipulation of interphalangeal joint of Completed foot - non-surgical Social History Social History Type Response Substance Abuse Use: None. Employment/School Status: Employed. 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 Alcohol Never Smoking Status Never smoker; Type: Cigars; Exposure to Tobacco Smoke None; Cigarette Smoking Last 365 Days No; Reg Smoking Cessation Counseling No entered on: 09/26/18 Assessment and Plan No data available for this section
--- OUTSIDE RECORDS SUMMARY | 2018-10-09 20:15 | XMS REPORT | Summary of Care ---
:1975 Author Organization [facility] Primary Care [place] Address [address], [place] [address]- Encounter HQ Encntr_alias(FIN) [id number] Date(s): 10/21/17 - 10/22/17 [facility] Care [place] [address] [place] [address], [place] [address] - [phone] Vital Signs No data available for this section Problem List Condition Effective Dates Status Health Status Informant Amnesia1 07/03/13 Active Anemia2 Active Benign hypertension3 12/28/12 Active Constipation4 01/26/13 Active Depressive disorder5 12/20/13 Active Fatigue6 12/28/12 Active Generalized abdominal pain7 12/28/12 Active Headache8 12/28/12 Active Hyperglycemia9 01/03/13 Active Kaonwouijrrjci71 01/03/13 Active Long-term drug 08/22/13 Active Low back pain12 01/03/14 Active Lwxbefyjyjb14 07/03/13 Active Obesity(Confirmed) Active Positional urnfivk74 07/03/13 Active Gyekcrslmeh88 01/03/13 Active Xpyiqaw49 07/24/14 Active Systolic elezhk76 07/24/14 Active Vitamin D hcbzaokygs08 01/03/13 Active 1Data migrated from [employer] [...]
--- OUTSIDE RECORDS SUMMARY | 2018-10-09 20:15 | XMS REPORT | Summary of Care ---
:1975 Author Organization [facility] Primary [place] Address [address] [address] [facility], [place] [address]- Encounter HQ Encntr_alikevin(FIN) [id number] Date(s): 09/29/18 - 09/30/18 [facility] [place] [address] [place] [address], [place] [address] - [phone] Vital Signs No data available for this section Problem List Condition Effective Dates Status Health Status Informant Amnesia1 07/03/13 Active Anemia2 Active Benign hypertension(Confirmed)3 12/28/12 Active Constipation4 01/26/13 Active Depressive disorder(Confirmed)5 12/20/13 Active Fatigue6 12/28/12 Active Gastritis(Confirmed) Active Generalized abdominal pain7 12/28/12 Active Headache8 12/28/12 Active Hyperglycemia9 01/03/13 Active Ulqrwfuwmgjrci53 01/03/13 Active Long-term drug caeecxb13 08/22/13 Active Low back pain12 01/03/14 Active Mnasvwjeaqz53 07/03/13 Active Obesity(Confirmed) Active Obstructive sleep apnea, Active adult(Confirmed) Positional hgkayau76 07/03/13 Active Tlvponwmswz58 01/03/13 Active Edema(Confirmed) Active Zkhrgzc58 07/24/14 Active Systolic 07/24/14 Active Vitamin D hqzahwreww67 01/03/13 Active 1Data migrated from [employer] [...] Substance Reaction Severity Status NKDA Active Medications Ventolin HFA 90 mcg/inh inhalation aerosol with adapter 2 puff, INHALER, Q6H, PRN wheezing, coughing, or shortness of breath, # 8 gm, 1 Refill(s), Pharmacy:[facility]/pharmacy #[id number] Start Date: 09/29/18 Status: Ordered Results No data available for this section Immunizations No data available for this section Procedures Procedure Date Related Diagnosis Body Site Status Breast reduction, bilateral Completed Exploration of gallbladder Completed Manipulation of interphalangeal joint of Completed foot - non-surgical Social History Social History Type Response Substance Abuse Use: None. Employment/School Status: Employed. 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 Alcohol Never Smoking Status Never smoker; Type: Cigars; Exposure to Tobacco Smoke None; Cigarette Smoking Last 365 Days No; Reg Smoking Cessation Counseling No entered on: 09/26/18 Assessment and Plan No data available for this section
--- OUTSIDE RECORDS SUMMARY | 2018-10-09 20:15 | XMS REPORT | Summary of Care ---
:1975 Author Organization [facility] Primary Care [place] Address [address] [address] [facility], [place] [address]- Encounter HQ Maximusr_marya(FIN) [id number] Date(s): 09/26/18 - 09/26/18 [facility] Primary [place] [address] [address] [facility], [place] [address] - [phone] Discharge Disposition: Home or Self Care Attending Physician: Thony Diamond MD Vital Signs Most recent to oldest [Reference Range]: 1 Height 165.1 cm (09/26/18 11:04 AM) Temperature Oral [96.4-99.1 DegF] 98.7 DegF (09/26/18 11:04 AM) Blood Pressure [90-140/60-90 mmHg] 156/87 mmHg *HI* (09/26/18 11:04 AM) Peripheral Pulse Rate [60-100 bpm] 76 bpm (09/26/18 11:04 AM) Weight 105 kg (09/26/18 11:04 AM) Body Mass Index 38.52 m2 (09/26/18 11:04 AM) Problem List Condition Effective Dates Status Health Status Informant Amnesia1 07/03/13 Active Anemia2 Active Benign hypertension(Confirmed)3 12/28/12 Active Constipation4 01/26/13 Active Depressive disorder(Confirmed)5 12/20/13 Active Fatigue6 12/28/12 Active Gastritis(Confirmed) Active Generalized abdominal pain7 12/28/12 Active Headache8 12/28/12 Active Hyperglycemia9 01/03/13 Active Rklrcloeskopye08 01/03/13 Active Long-term drug pltyvqa92 08/22/13 Active Low back pain12 01/03/14 Active Lgzyedckbyo88 07/03/13 Active Obesity(Confirmed) Active Obstructive sleep apnea, Active adult(Confirmed) Positional binrrdj90 07/03/13 Active Ubqioxuvxsk70 01/03/13 Active Edema(Confirmed) Active Xsrwfqj24 07/24/14 Active Systolic ncxaby02 07/24/14 Active Vitamin D wewprvnlbi89 01/03/13 Active 1Data migrated from [employer] [...] Substance Reaction Severity Status NKDA Active Medications bisoprolol 10 mg oral tablet 10 mg=1 tab, PO, Daily, # 30 tab, 2 Refill(s), Pharmacy: [facility]/pharmacy #[id number] Start Date: 09/26/18 Status: OrderedPepcid 20 mg oral tablet 20 mg=1 tab, PO, BID, # 60 tab, 0 Refill(s) Start Date: 09/26/18 Status: OrderedTylenol with Codeine #3 oral tablet 1 tab, PO, Q6H, 0 Refill(s) Start Date: 09/26/18 Status: Ordered Results No data available for this section Immunizations No data available for this section Procedures Procedure Date Related Diagnosis Body Site Status Breast reduction, bilateral Completed Exploration of gallbladder Completed Manipulation of interphalangeal joint of Completed foot - non-surgical Social History Social History Type Response Substance Abuse Use: None. Employment/School Status: Employed. 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 Alcohol Never Smoking Status Never smoker; Type: Cigars; Exposure to Tobacco Smoke None; Cigarette Smoking Last 365 Days No; Reg Smoking Cessation Counseling No entered on: 09/26/18 Assessment and Plan No data available for this section
--- OUTSIDE RECORDS SUMMARY | 2018-10-09 20:15 | XMS REPORT | Summary of Care ---
:1975 Author Organization [facility] Primary Care [place] Address [address] [facility] [address] [facility], [place] [address]- Encounter HQ Encntr_alikevin(FIN) [id number] Date(s): 01/21/18 - 01/22/18 [facility] Care [place] [address] [place] [address], [place] [address] - [phone] Vital Signs No data available for this section Problem List Condition Effective Dates Status Health Status Informant Amnesia1 07/03/13 Active Anemia2 Active Benign hypertension3 12/28/12 Active Constipation4 01/26/13 Active Depressive disorder5 12/20/13 Active Fatigue6 12/28/12 Active Generalized abdominal pain7 12/28/12 Active Headache8 12/28/12 Active Hyperglycemia9 01/03/13 Active Ctcvjhhmdwclhb07 01/03/13 Active Long-term drug hulyybs40 08/22/13 Active Low back pain12 01/03/14 Active Qtothmemijh65 07/03/13 Active Obesity(Confirmed) Active Positional losppga91 07/03/13 Active Ckyvlrexwfw68 01/03/13 Active Ayjlkpf00 07/24/14 Active Systolic jbfyxb64 07/24/14 Active Vitamin D zzshjehmoc09 01/03/13 Active 1Data migrated from [employer] [...]
--- OUTSIDE RECORDS SUMMARY | 2018-10-09 20:15 | XMS REPORT | Summary of Care ---
:1975 Author Organization [facility] Primary Care [place] Address [address] [address] [facility], [place] [address]- Encounter HQ Encntr_alias(FIN) [id number] Date(s): 03/09/18 - 03/10/18 [facility] [place] [address] [place] [address], [place] [address] - [phone] Vital Signs No data available for this section Problem List Condition Effective Dates Status Health Status Informant Amnesia1 07/03/13 Active Anemia2 Active Benign hypertension(Confirmed)3 12/28/12 Active Constipation4 01/26/13 Active Depressive disorder(Confirmed)5 12/20/13 Active Fatigue6 12/28/12 Active Gastritis(Confirmed) Active Generalized abdominal pain7 12/28/12 Active Headache8 12/28/12 Active Hyperglycemia9 01/03/13 Active Ijufvnqepuylmo66 01/03/13 Active Long-term drug owebmrp07 08/22/13 Active Low back pain12 01/03/14 Active Wtynbdrldyy76 07/03/13 Active Obesity(Confirmed) Active Obstructive sleep apnea, Active adult(Confirmed) Positional hucdipc53 07/03/13 Active Iaqpdimytwo25 01/03/13 Active Edema(Confirmed) Active Pipylli88 07/24/14 Active Systolic snraqd05 07/24/14 Active Vitamin D accicglnmp71 01/03/13 Active 1Data migrated from [employer] [...] Use: None. Employment/School Status: Employed. 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 Alcohol Never Smoking Status Never smoker; Type: Cigars; Exposure to Tobacco Smoke None; Cigarette Smoking Last 365 Days No; Reg Smoking Cessation Counseling No entered on: 09/26/18 Assessment and Plan No data available for this section
--- OUTSIDE RECORDS SUMMARY | 2018-10-09 20:15 | XMS REPORT | Summary of Care ---
:1975 Author Organization [facility] Primary [place] Address [address], [place] [address]- Encounter HQ Zeynep(SCHUYLER) [id number] Date(s): 02/08/18 - 02/08/18 [facility] [place] [address] [address] [facility] [address], [place] [address] - [phone] Discharge Disposition: Home or Self Care Attending Physician: Thony Diamond MD Vital Signs Most recent to oldest [Reference Range]: 1 Height 167.64 cm (02/08/18 10:54 AM) Temperature Oral [96.4-99.1 DegF] 98.6 DegF (02/08/18 10:54 AM) Blood Pressure [90-140/60-90 mmHg] 152/89 mmHg *HI* (02/08/18 10:54 AM) Peripheral Pulse Rate [60-100 bpm] 79 bpm (02/08/18 10:54 AM) Weight 104.091 kg (02/08/18 10:54 AM) Body Mass Index 37.04 m2 (02/08/18 10:54 AM) Problem List Condition Effective Dates Status Health Status Informant Amnesia1 07/03/13 Active Anemia2 Active Benign hypertension3 12/28/12 Active Constipation4 01/26/13 Active Depressive disorder5 12/20/13 Active Fatigue6 12/28/12 Active Generalized abdominal pain7 12/28/12 Active Headache8 12/28/12 Active Hyperglycemia9 01/03/13 Active Uedkttcrjgyvso38 01/03/13 Active Long-term drug fiwgfdl87 08/22/13 Active Low back pain12 01/03/14 Active Capqhrjwhsj88 07/03/13 Active Obesity(Confirmed) Active Positional vjvaovr68 07/03/13 Active Eaujbfmxfuf01 01/03/13 Active Wlxhhfl79 07/24/14 Active Systolic mjrxiu97 07/24/14 Active Vitamin D lpjzdzegef38 01/03/13 Active 1Data migrated from [employer] [...] oral tablet 1 tab, PO, Daily, # 30 tab, 1 Refill(s), Pharmacy: [facility]/pharmacy #[id number] Start Date: 02/08/18 Stop Date: 04/09/18 Status: Ordered Results No data available for [...] Reg Smoking Cessation Counseling No entered on: 02/08/18 Assessment and Plan No data available for this section
--- OUTSIDE RECORDS SUMMARY | 2018-10-09 20:16 | XMS REPORT | Summary of Care ---
:1975 Author Organization [facility] Sleep Lab [place] Address [address] [address] [address] [place] [address]- Encounter HQ Encntr_alias(FIN) [id number] Date(s): 03/18/18 - 03/18/18 [facility] Sleep [facility] [place] [address] [facility] [address] [place] [address]- Discharge Disposition: Home or Self Care Attending Physician: Sg Yi MD Vital Signs Most recent to oldest [Reference Range]: 1 Height 165.1 cm (03/18/18 10:14 AM) Temperature Oral [96.4-99.1 DegF] 98.4 DegF (03/18/18 10:14 AM) Blood Pressure [90-140/60-90 mmHg] 149/89 mmHg *HI* (03/18/18 10:14 AM) Respiratory Rate [14-20 BRMIN] 16 BRMIN (03/18/18 10:14 AM) Peripheral Pulse Rate [60-100 bpm] 79 bpm (03/18/18 10:14 AM) Weight 104.545 kg (03/18/18 10:14 AM) Body Mass Index 38.35 m2 (03/18/18 10:14 AM) Problem List Condition Effective Dates Status Health Status Informant Amnesia1 07/03/13 Active Anemia2 Active Benign hypertension(Confirmed)3 12/28/12 Active Constipation4 01/26/13 Active Depressive disorder(Confirmed)5 12/20/13 Active Fatigue6 12/28/12 Active Gastritis(Confirmed) Active Generalized abdominal pain7 12/28/12 Active Headache8 12/28/12 Active Hyperglycemia9 01/03/13 Active Znatikwhmrffiq94 01/03/13 Active Long-term drug 08/22/13 Active Low back pain12 01/03/14 Active Rsibbxzzdjf85 07/03/13 Active Obesity(Confirmed) Active Obstructive sleep apnea, Active adult(Confirmed) Positional nfftqdy30 07/03/13 Active Qyervhwokrk39 01/03/13 Active Edema(Confirmed) Active Xyotlis26 07/24/14 Active Systolic aeespu16 07/24/14 Active Vitamin D ciznlqfvec31 01/03/13 Active 1Data migrated from [employer] [...] Substance Reaction Severity Status NKDA Active Medications meclizine 25 mg=1 tab, PO, PRN Dizziness Start Date: 03/18/18 Status: Ordered Results No data available for this section Immunizations No data available for this section Procedures Procedure Date Related Diagnosis Body Site Status Breast reduction, bilateral Completed Exploration of gallbladder Completed Manipulation of interphalangeal joint of Completed foot - non-surgical Social History Social History Type Response Substance Abuse Use: None. Employment/School Status: Employed. 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 Alcohol Never Smoking Status Never smoker; Type: Cigars; Exposure to Tobacco Smoke None; Cigarette Smoking Last 365 Days No; Reg Smoking Cessation Counseling No entered on: 09/26/18 Assessment and Plan No data available for this section
--- OUTSIDE RECORDS SUMMARY | 2018-10-09 20:16 | XMS REPORT | Summary of Care ---
:1975 Author Organization [facility] Outpatient Imaging [place] Address [address] [place] [address]- Encounter HQ Encntr_alikevin(FIN) [id number] Date(s): 09/11/15 - 09/11/15 [facility] Outpatient Imaging [place] [address] [facility] Discharge Disposition: Home Attending Physician: Rocío Martinez MD Vital Signs No data available for this section Problem List Condition Effective Dates Status Health Status Informant Amnesia1 07/03/13 Active Anemia2 Active Benign hypertension3 12/28/12 Active Constipation4 01/26/13 Active Depressive disorder5 12/20/13 Active Fatigue6 12/28/12 Active Generalized abdominal pain7 12/28/12 Active Headache8 12/28/12 Active Hyperglycemia9 01/03/13 Active Lyqftxgxhgdcfk33 01/03/13 Active Long-term drug pgwdkun19 08/22/13 Active Low back pain12 01/03/14 Active Bjhekquvpjo16 07/03/13 Active Obesity(Confirmed) Active Positional dymqevd08 07/03/13 Active Vzmtyrqypxa60 01/03/13 Active Tladuwk04 07/24/14 Active Systolic nmoeqh26 07/24/14 Active Vitamin D aoltadyxsh15 01/03/13 Active 1Data migrated from [employer] [...]
--- OUTSIDE RECORDS SUMMARY | 2018-10-09 20:16 | XMS REPORT | Summary of Care ---
:1975 Author Organization [facility] Primary Care [place] Address [address] [address] [facility], [place] [address]- Encounter HQ Richardntr_marya(FIN) [id number] Date(s): 02/08/18 - 02/08/18 [facility] Primary [facility] [place] [address] [place] [address], [place] [address] - [phone] Discharge Disposition: Home or Self Care Attending [...] Active Headache8 12/28/12 Active Hyperglycemia9 01/03/13 Active Kzktfbelosueew36 01/03/13 Active Long-term drug gykdweq02 08/22/13 Active Low back pain12 01/03/14 Active Kepfklmumzh09 07/03/13 Active Obesity(Confirmed) Active Obstructive sleep apnea, Active adult(Confirmed) Positional bvqucnb49 07/03/13 Active Iaiwvlaqrxp72 01/03/13 Active Ovqqwpq89 07/24/14 Active Systolic podvso44 07/24/14 Active Vitamin D pwgiwpzbpg39 01/03/13 Active 1Data migrated from [employer] [...] oral tablet 1 tab, PO, Daily, X 30 day, # 30 tab, 1 Refill(s), Pharmacy: [facility]/pharmacy #[id number] Start Date: 02/08/18 Stop Date: 03/09/18 Status: Completed Results No data available for this section Immunizations No data available for this section Procedures Procedure Date Related Diagnosis Body Site Status Breast reduction, bilateral Completed Exploration of gallbladder Completed Manipulation of interphalangeal joint of Completed foot - non-surgical Social History Social History Type Response Substance Abuse Use: None. Employment/School Status: Employed. 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 Alcohol Never Smoking Status Never smoker; Type: Cigars; Exposure to Tobacco Smoke None; Cigarette Smoking Last 365 Days No; Reg Smoking Cessation Counseling No entered on: 07/15/18 Assessment and Plan No data available for this section
--- OUTSIDE RECORDS SUMMARY | 2018-10-09 20:16 | XMS REPORT | Summary of Care ---
:1975 Author Organization [facility] Outpatient [facility] [place] Address [address] [place] [address]- Encounter HQ Encntr_alias(FIN) [id number] Date(s): 09/02/15 - 09/02/15 [facility] Outpatient [facility] [place] [address] Discharge Disposition: Home Attending Physician: Rocío Martinez MD Vital Signs No data available for this section Problem List Condition Effective Dates Status Health Status Informant Amnesia1 07/03/13 Active Anemia2 Active Benign hypertension3 12/28/12 Active Constipation4 01/26/13 Active Depressive disorder5 12/20/13 Active Fatigue6 12/28/12 Active Generalized abdominal pain7 12/28/12 Active Headache8 12/28/12 Active Hyperglycemia9 01/03/13 Active Qpiqyavtkleqrb59 01/03/13 Active Long-term drug 08/22/13 Active Low back pain12 01/03/14 Active Zyxdveewrdq57 07/03/13 Active Obesity(Confirmed) Active Positional txcgepb74 07/03/13 Active Sxofsblktda66 01/03/13 Active Gfpzyjc82 07/24/14 Active Systolic kntrfe14 07/24/14 Active Vitamin D wbwtfkhuqh87 01/03/13 Active 1Data migrated from [employer] [...] History Social History Type Response Smoking Status Former smoker; Exposure to Tobacco Smoke None; Cigarette Smoking Last 365 Days No; Reg Smoking Cessation Counseling No Assessment and Plan No data available for this section
--- OUTSIDE RECORDS SUMMARY | 2018-10-09 20:16 | XMS REPORT | Summary of Care ---
:1975 Author Organization [facility] Primary Care [place] Address [address] [facility], [place] [address]- Encounter HQ Encntr_alikevin(FIN) [id number] Date(s): 10/03/18 - 10/04/18 [facility] Primary Care [place] [address] [place] [address] [place] [address]- [phone] Vital Signs No data available for this section Problem List Condition Effective Dates Status Health Status Informant Amnesia1 07/03/13 Active Anemia2 Active Benign hypertension(Confirmed)3 12/28/12 Active Constipation4 01/26/13 Active Depressive disorder(Confirmed)5 12/20/13 Active Fatigue6 12/28/12 Active Gastritis(Confirmed) Active Generalized abdominal pain7 12/28/12 Active Headache8 12/28/12 Active Hyperglycemia9 01/03/13 Active Crtzmcrfygeozw54 01/03/13 Active Long-term drug lehpsaq07 08/22/13 Active Low back pain12 01/03/14 Active Ndvuaoagbqc47 07/03/13 Active Obesity(Confirmed) Active Obstructive sleep apnea, Active adult(Confirmed) Positional uorcjrl27 07/03/13 Active Fwmkaclwald85 01/03/13 Active Edema(Confirmed) Active Ntbyetz14 07/24/14 Active Systolic 07/24/14 Active Vitamin D mimurxxnhq62 01/03/13 Active 1Data migrated from [employer] [...] Use: None. Employment/School Status: Employed. 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 Alcohol Never Smoking Status Never smoker; Type: Cigars; Exposure to Tobacco Smoke None; Cigarette Smoking Last 365 Days No; Reg Smoking Cessation Counseling No entered on: 09/26/18 Assessment and Plan No data available for this section
--- OUTSIDE RECORDS SUMMARY | 2018-10-09 20:16 | XMS REPORT | Summary of Care ---
:1975 Author Organization [facility] Primary Care [place] Address [address] [address] [facility], [place] [address]- Encounter HQ Richardntr_marya(FIN) [id number] Date(s): 09/24/17 - 09/24/17 [facility] Care [place] [address] [place] [address], [place] [address] - [phone] Discharge Disposition: Home or Self Care Attending [...] Active Headache8 12/28/12 Active Hyperglycemia9 01/03/13 Active Cukhlnlasaknoj01 01/03/13 Active Long-term drug ftidnxi83 08/22/13 Active Low back pain12 01/03/14 Active Fsdfiufcbfm04 07/03/13 Active Obesity(Confirmed) Active Obstructive sleep apnea, Active adult(Confirmed) Positional nawbfga61 07/03/13 Active Gxiarggylyi01 01/03/13 Active Dhbcdzi40 07/24/14 Active Systolic 07/24/14 Active Vitamin D okeakbxpen99 01/03/13 Active 1Data migrated from [employer] [...] BID, # 16 gm, 2 Refill(s), [id number] Start Date: 09/24/17 Status: Orderedmeclizine 25 mg oral tablet 25 mg=1 tab, PO, PRN, 0 Refill(s) Start Date: 09/24/17 Stop Date: 09/24/17 Status: Discontinuedmeclizine 25 mg oral tablet 25 mg=1 tab, PO, Daily, PRN vertigo, X 30 day, # 21 tab, 1 Refill(s), Pharmacy: [facility]/pharmacy #[id number] Start Date: 09/24/17 Stop Date: 11/23/17 Status: Completed Results No data available for this section Immunizations No data available for this section Procedures Procedure Date Related Diagnosis Body Site Status Breast reduction, bilateral Completed Exploration of gallbladder Completed Manipulation of interphalangeal joint of Completed foot - non-surgical Social History Social History Type Response Substance Abuse Use: None. Employment/School Status: Employed. 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 Alcohol Never Smoking Status Never smoker; Type: Cigars; Exposure to Tobacco Smoke None; Cigarette Smoking Last 365 Days No; Reg Smoking Cessation Counseling No entered on: 07/15/18 Assessment and Plan No data available for this section
[2018-10-09] MEDS ORDERED: METHYLPREDNISOLONE 125 MG INJ ONE (20:45)
[2018-10-09] MEDS ORDERED: FAMOTIDINE 20 MG/2 ML VIAL IV ONE (20:45)
[2018-10-09] MEDS ORDERED: DIPHENHYDRAMINE 50 MG/ML VIAL ONE (20:45)
[2018-10-09 21:27] LABS: Absolute Lymphocytes (CBC) 2.8 K/uL (0.7-4.9); Absolute Monocytes 0.5 K/uL (0.1-1.3); Absolute Neutrophil 5.8 K/uL (1.8-8.0); Basophils % 1.1 % (0-1.3); Eosinophils % 0.5 % (0-4.4); Hematocrit 32.6 % (36.0-45.0); Lymphocytes % 30.1 % (15.3-44.8); Monocytes % 5.9 % (3.3-12.3); RBC Red Blood Cell Count 3.84 M/uL (3.86-4.86)
[2018-10-09 21:44] LABS: Albumin 4.1 g/dL (3.4-5.0); Bilirubin Total 0.3 mg/dL (0.2-1.0); Potassium 3.1 mmol/L (3.5-5.1); Protein, Total 8.1 g/dL (6.4-8.2)
--- NOTE | 2018-10-09 22:51 | EDPHYS ---
Physician Documentation [facility] Name: Zayra Hoffman Age: 43 yrs Sex: Female : 1975 Arrival Date: 10/09/2018 Time: 20:13 Bed 13 Private MD: ED Physician Guille Hicks HPI: 10/09 22:52 This 43 yrs old Black Female presents to ER via Ambulatory with complaints of Allergic tw4 Reaction, Swelling Of Tongue. 22:52 The patient presents with difficulty swallowing, itching. Onset: The symptoms/episode tw4 began/occurred today. Associated signs and symptoms: The patient has no apparent associated signs or symptoms. Possible causes: The patient has no known obvious cause for the symptoms. At home the patient or guardian has treated the symptoms with nothing. Severity of symptoms: At their worst the symptoms were moderate in the emergency department the symptoms are unchanged. The patient has not experienced similar symptoms in the past. Historical: - Allergies: 20:22 Diurex; jb4 20:22 bisoprolol fumarate; jb4 - Home Meds: 20:22 hydralazine 50 mg Oral tab [Active]; jb4 - PMHx: 20:22 Hypertension; Anxiety; jb4 - PSHx: 20:22 Cholecystectomy; foot; stomach; den-rectal abcess; jb4 - Immunization history:: Adult Immunizations up to date. - Social history:: Smoking status: Patient/guardian denies using tobacco, Patient/guardian denies using alcohol, but has a distant history of alcohol abuse. - Ebola Screening: : No symptoms or risks identified at this time. ROS: 22:52 Constitutional: Negative for fever, chills, and weight loss, Eyes: Negative for injury, tw4 pain, redness, and discharge, Cardiovascular: Negative for chest pain, palpitations, and edema, Respiratory: Negative for shortness of breath, cough, wheezing, and pleuritic chest pain, Abdomen/GI: Negative for abdominal pain, nausea, vomiting, diarrhea, and constipation, Back: Negative for injury and pain. 22:52 Neuro: Negative for headache, weakness, numbness, tingling, and seizure, Psych: Negative for depression, anxiety, suicide ideation, homicidal ideation, and hallucinations. 22:52 ENT: Positive for difficulty swallowing. Exam: 22:52 Constitutional: This is a well developed, well nourished patient who is awake, alert, tw4 and in no acute distress. Head/Face: Normocephalic, atraumatic. Chest/axilla: Normal chest wall appearance and motion. Nontender with no deformity. No lesions are appreciated. Cardiovascular: Regular rate and rhythm with a normal S1 and S2. No gallops, murmurs, or rubs. Normal PMI, no JVD. No pulse deficits. Respiratory: Lungs have equal breath sounds bilaterally, clear to auscultation and percussion. No rales, rhonchi or wheezes noted. No increased work of breathing, no retractions or nasal flaring. Abdomen/GI: Soft, non-tender, with normal bowel sounds. No distension or tympany. No guarding or rebound. No evidence of tenderness throughout. Skin: Warm, dry with normal turgor. Normal color with no rashes, no lesions, and no evidence of cellulitis. MS/ Extremity: Pulses equal, no cyanosis. Neurovascular intact. Full, normal range of motion. Neuro: Awake and alert, GCS 15, oriented to person, place, time, and situation. Cranial nerves II-XII grossly intact. Motor strength 5/5 in all extremities. Sensory grossly intact. Cerebellar exam normal. Normal gait. Vital Signs: 20:22 BP 167 / 77; Pulse 89; Resp 20; Pulse Ox 89% on R/A; Weight 104.33 kg (R); Height 5 ft. jb4 5 in. (165.10 cm) (R); Pain 0/10; 20:40 BP 155 / 82; Pulse 93; Resp 93; Pulse Ox 100% on R/A; jb4 23:15 BP 151 / 69; Pulse 81; Resp 16; Pulse Ox 95% on R/A; jb4 20:22 Body Mass Index 38.27 (104.33 kg, 165.10 cm) jb4 MDM: 20:29 Patient medically screened. tw4 22:52 Differential diagnosis: anaphylaxis, angioedema, Carcinoid. Data reviewed: vital signs, tw4 nurses notes. Counseling: I had a detailed discussion with the patient and/or guardian regarding: the historical points, exam findings, and any diagnostic results supporting the discharge/admit diagnosis. Special discussion: I discussed with the patient/guardian in detail that at this point there is no indication for admission to the hospital. It is understood, however, that if the symptoms persist or worsen the patient needs to return immediately for re-evaluation. 10/09 20:54 Order name: CBC with Diff [facility] 10/09 20:54 Order name: CMP tw 10/09 20:55 Order name: CBC with Automated Diff; Complete Time: 22:41 EDMS 10/09 22:42 Interpretation: Normal except: RBC 3.84; HGB 10.8; HCT 32.6; RDW 15.6. 4 10/09 20:55 Order name: Comprehensive Metabolic Panel; Complete Time: 22:44 EDMS 10/09 22:45 Interpretation: Normal except: K 3.1; CL 108; GLUC 112; BUN 4; GFR 74. tw4 Administered Medications: 20:35 Drug: SOLU-Medrol 125 mg Route: IVP; Site: left antecubital; jb4 23:30 Follow up: Response: No adverse reaction; Marked relief of symptoms 4 20:35 Drug: Pepcid 20 mg Route: IVP; Site: left antecubital; jb4 23:30 Follow up: Response: No adverse reaction; Marked relief of symptoms jb4 20:35 Drug: Benadryl 25 mg Route: IVP; Site: left antecubital; jb4 23:30 Follow up: Response: No adverse reaction; Marked relief of symptoms 4 23:25 Drug: Potassium Chloride 40 mEq Route: PO; jb4 23:42 Follow up: Response: No adverse reaction; Medication administered at discharge. 4 Disposition: 10/09/18 22:51 Discharged to Home. Impression: Hypokalemia, Allergic reaction. - Condition is Stable. - Discharge Instructions: Allergies, Dvms-ns-Hndo, Hypokalemia. - Prescriptions for Medrol (David) 4 mg Oral Tablets, Dose Pack - take 1 tablet by ORAL route as directed - follow package instructions; 1 packet. - Medication Reconciliation Form, Thank You Letter, Antibiotic Education, Prescription Opioid Use form. - Follow up: Private Physician; When: Upon discharge from the Emergency Department; Reason: If symptoms return, Recheck today's complaints, Continuance of care. - Problem is new. - Symptoms have improved. Signatures: Dispatcher [employer] EDRay Howard RN RN jb4 Guille Hicks MD MD tw4 Corrections: (The following items were deleted from the chart) 23:45 22:51 10/09/2018 22:51 Discharged to Home. Impression: Hypokalemia; Allergic reaction. jb4 Condition is Stable. Forms are Medication Reconciliation Form, Thank You Letter, Antibiotic Education, Prescription Opioid Use. Follow up: Private Physician; When: Upon discharge from the Emergency Department; Reason: If symptoms return, Recheck today's complaints, Continuance of care. Problem is new. Symptoms have improved. tw4
--- NOTE | 2018-10-09 22:51 | ER ---
Nurse's Notes [facility] Name: Zayra Hoffman Age: 43 yrs Sex: Female : 1975 Arrival Date: 10/09/2018 Time: 20:13 Bed 13 Private MD: Diagnosis: Hypokalemia;Allergic reaction Presentation: 10/09 20:22 Presenting complaint: Patient states: I started having an allergic reaction to jb4 medication 1hr [employer]. 20:22 Transition of care: patient was not received from another setting of care. Onset: The jb4 symptoms/episode began/occurred just prior to arrival. Anaphylaxis evaluation, no signs or symptoms of anaphylaxis were noted. Onset of symptoms was October 09, 2018. Risk Assessment: Do you want to hurt yourself or someone else? Patient reports no desire to harm self or others. Initial Sepsis Screen: Does the patient meet any 2 criteria? No. Patient's initial sepsis screen is negative. Does the patient have a suspected source of infection? No. Patient's initial sepsis screen is negative. Care prior to arrival: None. 20:22 Method Of Arrival: Ambulatory jb4 20:22 Acuity: SHMUEL 3 jb4 Historical: - Allergies: 20:22 Diurex; jb4 20:22 bisoprolol fumarate; jb4 - Home Meds: 20:22 hydralazine 50 mg Oral tab [Active]; jb4 - PMHx: 20:22 Hypertension; Anxiety; jb4 - PSHx: 20:22 Cholecystectomy; foot; stomach; den-rectal abcess; jb4 - Immunization history:: Adult Immunizations up to date. - Social history:: Smoking status: Patient/guardian denies using tobacco, Patient/guardian denies using alcohol, but has a distant history of alcohol abuse. - Ebola Screening: : No symptoms or risks identified at this time. Screenin:22 Abuse screen: Denies threats or abuse. Nutritional screening: No deficits noted. jb4 Tuberculosis screening: No symptoms or risk factors identified. Fall Risk None identified. Assessment: 20:22 General: Appears uncomfortable, Behavior is cooperative, appropriate for age, anxious. jb4 Pain: Denies pain. Neuro: Level of Consciousness is awake, alert, obeys commands, Oriented to person, place, time, situation. Cardiovascular: Patient's skin is warm and dry. Respiratory: Reports difficulty swallowing. Airway is patent Respiratory effort is even, unlabored, Respiratory pattern is regular, symmetrical, Breath sounds are clear bilaterally. GI: No signs and/or symptoms were reported involving the gastrointestinal system. : No signs and/or symptoms were reported regarding the genitourinary system. EENT: Throat is clear. Derm: Skin is intact, Skin is dry, Skin is normal, Skin temperature is warm. Musculoskeletal: Circulation, motion, and sensation intact. 21:00 Reassessment: Patient and/or family updated on plan of care and expected duration. Pain jb4 level reassessed. Patient is alert, oriented x 3, equal unlabored respirations, skin warm/dry/pink. Patient states feeling better. 22:00 Reassessment: Patient appears in no apparent distress at this time. Patient and/or jb4 family updated on plan of care and expected duration. Pain level reassessed. Patient is alert, oriented x 3, equal unlabored respirations, skin warm/dry/pink. Pt reports being able to swallow more easiliy Patient states feeling better. 22:30 Reassessment: Patient appears in no apparent distress at this time. Patient and/or jb4 family updated on plan of care and expected duration. Pain level reassessed. Patient is alert, oriented x 3, equal unlabored respirations, skin warm/dry/pink. Vital Signs: 20:22 BP 167 / 77; Pulse 89; Resp 20; Pulse Ox 89% on R/A; Weight 104.33 kg (R); Height 5 ft. jb4 5 in. (165.10 cm) (R); Pain 0/10; 20:40 BP 155 / 82; Pulse 93; Resp 93; Pulse Ox 100% on R/A; jb4 23:15 BP 151 / 69; Pulse 81; Resp 16; Pulse Ox 95% on R/A; jb4 20:22 Body Mass Index 38.27 (104.33 kg, 165.10 cm) jb4 ED Course: 20:13 Patient arrived in ED. es 20:22 Arm band placed on left wrist. jb4 20:22 Patient has correct armband on for positive identification. Bed in low position. Call jb4 light in reach. Side rails up X 1. Pulse ox on. NIBP on. 20:23 Guille Hicks MD is Attending Physician. tw4 20:40 No provider procedures requiring assistance completed. Initial lab(s) drawn, by in, jb4 sent to lab. Inserted saline lock: 20 gauge in left antecubital area, using aseptic technique. Blood collected. 20:56 Ray Cummings, RN is Primary Nurse. jb4 21:01 Triage completed. jb4 22:30 IV discontinued, intact, bleeding controlled, No redness/swelling at site. jb4 Administered Medications: 20:35 Drug: SOLU-Medrol 125 mg Route: IVP; Site: left antecubital; jb4 23:30 Follow up: Response: No adverse reaction; Marked relief of symptoms jb4 20:35 Drug: Pepcid 20 mg Route: IVP; Site: left antecubital; jb4 23:30 Follow up: Response: No adverse reaction; Marked relief of symptoms jb4 20:35 Drug: Benadryl 25 mg Route: IVP; Site: left antecubital; jb4 23:30 Follow up: Response: No adverse reaction; Marked relief of symptoms jb4 23:25 Drug: Potassium Chloride 40 mEq Route: PO; jb4 23:42 Follow up: Response: No adverse reaction; Medication administered at discharge. jb4 Outcome: 22:51 Discharge ordered by . tw4 23:00 Discharged to home ambulatory, with family. jb4 23:00 Condition: stable 23:00 Discharge instructions given to patient, family, Instructed on discharge instructions, follow up and referral plans. medication usage, Demonstrated understanding of instructions, follow-up care, medications, Prescriptions given X 1. 23:45 Patient left the ED. jb4 Signatures: Sheela Moran James, RN RN jb4 Guille Hicks MD MD tw4 Corrections: (The following items were deleted from the chart) 23:40 22:20 Abuse screen: Denies threats or abuse. jb4 jb4 23:40 22:20 Nutritional screening: No deficits noted. jb4 jb4 23:40 22:20 Tuberculosis screening: No symptoms or risk factors identified. jb4 jb4 23:40 22:20 Fall Risk None identified. jb4 jb4
[2018-10-09] MEDS ORDERED: POTASSIUM CL SA 10 MEQ TAB PO ONE ×2 (23:26→23:31)
== END 2018-10-09 23:45 | disposition home or self-care (01) ==
LOC: ER 20:09
DX: T78.40XA Allergy, unspecified, initial encounter (principal); E87.6 Hypokalemia; X58.XXXA Exposure to other specified factors, initial encounter; I10 Essential (primary) hypertension; Z88.8 Allergy status to other drugs, medicaments and biological substances
CPT/HCPCS: 36415; 80053; 85025; 96374; 96375; 99284; J2930

== ENCOUNTER 2021-11-06 12:07 | Emergency (ER) | payer OTHER, SELFPAY ==
--- OUTSIDE RECORDS SUMMARY | 2021-11-06 12:10 | XMS REPORT | Continuity of Care Document ---
:1975 Author Organization [facility] t Address [address] [place] [address] Dr. Griffin [address] [place] [id number] Care Team Providers Name Role Phone Edwige COWAN Primary Care Physician Unavailable Alonzo Attending Clinician Unavailable Edwige COWAN Attending Clinician Unavailable Darek SNYDER Attending Clinician Unavailable Derik Attending Clinician Unavailable JULIO Attending Clinician Unavailable DR FARAZ Attending Clinician Unavailable FARAZ Attending Clinician Unavailable Alonzo Admitting Clinician Unavailable Derik Admitting Clinician Unavailable DR FARAZ Admitting Clinician Unavailable Payers Payer Name Policy Type Policy Number Effective Date Expiration Date [facility] [id number] 2017 00:00:00 Amura [id number] 2020 00:00:00 Problems This patient has no known problems. Allergies, Adverse Reactions, Alerts Allergy Allergy Status Severity Reaction(s) Onset Inactive Treating Comm ents Source Name Type Date Date Clinician Bisoprol DA Active Unknown swelling, [facility] breath [facility] Hydralaz DA Active Unknown Tongue [facility] Losartan DA Active Unknown stroke-like [facility] symptoms on Medic al the left Center side Hydrochl DA Active Unknown stroke-like [facility] orothiaz symptoms on Med ical karen the left Center side Metoprol DA Active Unknown throat [facility] Nifedipi DA Active Unknown left side [facility] swelling of [facility] al face Center Medications This patient has no known medications. Vital Signs Vital Name Observation Time Observation Value Comments Source Height 2019-11-28 14:56:00 165.1 CM Weight 2019-11-28 14:56:00 96.61 KG Procedures Procedure Date / Time Performed Performing Clinician Sourc e REATTACH LT SHLDR 2019-12-01 00:00:00 [facility] ENDO Center RELEASE LT SHOULDER 2019-12-01 00:00:00 [facility] JOINT PERQ ENDO Center EXCISION LEFT CLAVICLE 2019-12-01 00:00:00 [facility] Encounters Start End Encounter Admission Attending Care Care Encounter Source Date/Time Date/Time Type Type Clinicians Facility Department ID 2021-09-29 2021-09-29 Outpatient [id number] PRIV PRIV [id number] [facility] 12:01:00 12:01:00 [facility] [id number] [facility] 2021-05-23 2021-05-23 [facility] [id number] [place] 00:00:00 00:00:00 [facility] 2021-04-28 2021-04-28 [facility] [id number] [place] 09:24:33 11:19:12 [facility] 2021-04-22 2021-04-22 [facility] [id number] [place] 00:00:00 00:00:00 [facility] 2021-02-27 2021-02-27 [facility] [id number] [place] 14:20:21 15:18:36 [facility] 2020-11-14 2020-11-14 Outpatient [email or web address] PRIV PRIV [id number] [facility] 09:27:00 09:27:00 [id number]_R [id number] Med[facility] l 2020-10-10 2020-10-10 Outpatient JULIO, [facility] [id number] [place] 00:00:00 00:00:00 JANET [address] 2019-12-01 2019-12-01 Outpatient Viv RUTH Viv [facility] [id number] Yeny 09:12:00 15:20:00 [facility] 2019-10-11 2019-10-11 Outpatient FARAZ, [facility] [id number] [place] 00:00:00 00:00:00 LOPEZ Moran[address] [facility] 2018-12-20 2018-12-20 Emergency E [facility] [id number] [place] 17:29:00 17:29:00 edwige gibbons Results Test Description Test Time Test Comments Results Result Comments Source URINE MONOCLONALFB 2019-12-04 06:21:00 Test Item Value Reference Range Interpretation Comme nts PREG UR (test code = PGU) NEGATIVE NEGATIVE
[2021-11-06] MEDS ORDERED: LORazepam 2 MG/ML VIAL ONE (13:13)
[2021-11-06 13:15] LABS: Hematocrit 33.5 % (36.0-45.0); Lymphocytes % 26.6 % (15.3-44.8); MPV 8.3 fL (7.6-11.3); RBC Red Blood Cell Count 3.86 M/uL (3.86-4.86)
[2021-11-06 13:26] LABS: Magnesium 2.3 mg/dL (1.8-2.4); Potassium 3.9 mmol/L (3.5-5.1)
--- NOTE | 2021-11-06 13:54 | RAD REPORT ---
EXAM DESCRIPTION: CT - Head Brain Wo Cont - 11/06/2021 1:46 pm CLINICAL HISTORY: weakness COMPARISON: No comparisons TECHNIQUE: All CT scans are performed using dose optimization technique as appropriate and may inclu de automated exposure control or mA/KV adjustment according to patient size. FINDINGS: No intracranial hemorrhage, hydrocephalus or extra-axial fluid collection.No areas of brai n edema or evidence of midline shift. The paranasal sinuses and mastoids are clear. The calvarium is intact. IMPRESSION: No acute intracranial abnormality.
--- NOTE | 2021-11-06 14:53 | EDPHYS ---
Physician Documentation [facility] Name: Zayra Hoffman Age: 46 yrs Sex: Female : 1975 Arrival Date: 11/06/2021 Time: 12:08 Bed 8 Private MD: Leandro Allan ED Physician Janie Joy HPI: 11/06 13:21 This 46 yrs old Black Female presents to ER via Wheelchair with complaints of Weakness, ma2 swelling, Trouble Walking. 13:21 Has history of anxiety hypertension, 46-year-old female, has chronic gradual left sided ma2 body shaking and tremor, this been gradual over 2 years. Got worse last week. Patient said that she is unable to walk due to the tremor and she feels weak all over and tired. Denies headache or trauma.. Historical: - Allergies: 12:16 bisoprolol fumarate; ab2 12:16 Diurex; ab2 12:16 HYDRALAZINE; ab2 12:16 Losartan; ab2 12:16 Metoprolol Tartrate; ab2 12:16 Nifedipine; ab2 - PMHx: 12:17 Anxiety; Hypertension; ab2 12:25 Left sided weakness- unspecified; aa5 - Immunization history:: Adult Immunizations up to date. - Social history:: Smoking status: Patient denies any tobacco usage or history of. - Family history:: not pertinent. ROS: 13:21 Constitutional: Negative for fever, chills, and weight loss. ma2 13:21 All other systems are negative. Exam: 13:21 Constitutional: This is a well developed, well nourished patient who is awake, alert, ma2 and in no acute distress. Head/Face: Normocephalic, atraumatic. ENT: Nares patent. No nasal discharge, no septal abnormalities noted. Tympanic membranes are normal and external auditory canals are clear. Oropharynx with no redness, swelling, or masses, exudates, or evidence of obstruction, uvula midline. Mucous membranes moist. Neck: Trachea midline, no thyromegaly or masses palpated, and no cervical lymphadenopathy. Supple, full range of motion without nuchal rigidity, or vertebral point tenderness. No Meningismus. Chest/axilla: Normal chest wall appearance and motion. Nontender with no deformity. No lesions are appreciated. Cardiovascular: Regular rate and rhythm with a normal S1 and S2. No gallops, murmurs, or rubs. Normal PMI, no JVD. No pulse deficits. Respiratory: Lungs have equal breath sounds bilaterally, clear to auscultation and percussion. No rales, rhonchi or wheezes noted. No increased work of breathing, no retractions or nasal flaring. Abdomen/GI: Soft, non-tender, with normal bowel sounds. No distension or tympany. No guarding or rebound. No evidence of tenderness throughout. Skin: Warm, dry with normal turgor. Normal color with no rashes, no lesions, and no evidence of cellulitis. MS/ Extremity: Pulses equal, no cyanosis. Neurovascular intact. Full, normal range of motion. Neuro: Left upper extremity tremor course, nonintentional, patien has weakness on left side according to patient has been going on for 2 years, strength in both left upper and left lower extremity is 4 out of 5, otherwise she is awake and alert, GCS 15, oriented to person, place, time, and situation. Cranial nerves II-XII grossly intact. Motor strength 5/5 in both right upper and lower extremities. Sensory grossly intact. Cerebellar exam normal. Normal gait. Vital Signs: 12:15 BP 134 / 73; Pulse 79; Resp 17; Temp 97.8; Pulse Ox 100% ; Weight 93.44 kg; Height 5 ab2 ft. 5 in. (165.10 cm); Pain 7/10; 14:00 BP 130 / 68; Pulse 80; Resp 16 S; Pulse Ox 99% on R/A; aa5 12:15 Body Mass Index 34.28 (93.44 kg, 165.10 cm) ab2 MDM: 14:51 Data reviewed: vital signs, nurses notes, diagnostic data from outside facility, old wi2 medical records. Counseling: I had a detailed discussion with the patient and/or guardian regarding: the historical points, exam findings, and any diagnostic results supporting the discharge/admit diagnosis, the presence of at least one elevated blood pressure reading (>120/80) during this emergency department visit, the need for outpatient follow up. Response to treatment: the patient's symptoms have markedly improved after treatment. ED course: Work-up unremarkable, left upper extremity tremor has resolved on my evaluation at 1451, we will refer to neurology for further evaluation. 14:52 Patient medically screened. wi2 11/06 12:53 Order name: Basic Metabolic Panel; Complete Time: 14:18 [facility] 11/06 12:53 Order name: CBC with Diff; Complete Time: 14:18 wi11/06 12:53 Order name: Magnesium; Complete Time: 14:18 wi2 11/06 12:53 Order name: EKG; Complete Time: 12:54 wi11/06 12:53 Order name: CT Head Brain wo Cont; Complete Time: 14:18 wi11/06 12:53 Order name: EKG - Nurse/Tech; Complete Time: 13:23 [facility] 11/06 12:53 Order name: IV Saline Lock; Complete Time: 13:05 wi11/06 12:53 Order name: Labs collected and sent; Complete Time: 13:05 wi11/06 12:53 Order name: O2 Per Protocol; Complete Time: 13:05 [facility] 11/06 12:53 Order name: O2 Sat Monitoring; Complete Time: 13:05 wi2 Administered Medications: 13:12 Drug: Ativan (LORazepam) 1 mg Route: IVP; Site: right antecubital; aa5 13:30 Follow up: Response: No adverse reaction aa5 Disposition Summary: 11/06/21 14:52 Discharge Ordered Location: Home ma2 Condition: Stable ma2 Diagnosis - Other specified forms of tremor ma2 Followup: ma2 - With: Errol Pal MD - When: Tomorrow - Reason: If symptoms return, Continuance of care Discharge Instructions: - Discharge Summary Sheet ma2 - Tremor ma2 Forms: - Medication Reconciliation Form ma2 - Thank You Letter ma2 - Antibiotic Education ma2 - Prescription Opioid Use ma2 Signatures: Dispatcher [employer] Lydia Whitaker RN RN aa5 Janie Joy MD MD ma2 Kenny Alarcon ab2
--- NOTE | 2021-11-06 14:53 | ER ---
Nurse's Notes [facility] Name: Zayra Hoffman Age: 46 yrs Sex: Female : 1975 Arrival Date: 11/06/2021 Time: 12:08 Bed 8 Private MD: Leandro Allan Diagnosis: Other specified forms of tremor Presentation: 11/06 12:14 Chief complaint: Patient states: "This morning I woke up around 7 with increased ab2 weakness, im not able to walk or i have swelling in my hands, feet and legs.". 12:15 Coronavirus screen: Vaccine status: Patient reports receiving the 2nd dose of the covid ab2 vaccine. Client denies travel out of the [place] in the last 14 days. At this time, the client does not indicate any symptoms associated with coronavirus-19. Ebola Screen: Patient negative for fever greater than or equal to 101.5 degrees Fahrenheit, and additional compatible Ebola Virus Disease symptoms Patient denies exposure to infectious person. Patient denies travel to an Ebola-affected area in the 21 days before illness onset. No symptoms or risks identified at this time. No acute neurological deficit is noted. Initial Sepsis Screen: Does the patient meet any 2 criteria? No. Patient's initial sepsis screen is negative. Does the patient have a suspected source of infection? No. Patient's initial sepsis screen is negative. Risk Assessment: Do you want to hurt yourself or someone else? Patient reports no desire to harm self or others. Onset of symptoms is unknown. 12:15 Method Of Arrival: Wheelchair ab2 12:15 Acuity: SHMUEL 3 ab2 Triage Assessment: 12:17 The onset of the patients symptoms was. General: Appears in no apparent distress. ab2 comfortable, Behavior is calm, cooperative, appropriate for age. Pain: Complains of pain in whole body. Neuro: Level of Consciousness is awake, alert, obeys commands, Oriented to person, place, time, situation, Appropriate for age Service Line Bus Cleaner are equal bilaterally Moves all extremities. Gait is steady, Speech is normal, Facial symmetry appears normal, Intact Reports weakness. Cardiovascular: No deficits noted. Denies chest pain, shortness of breath, Patient's skin is warm and dry. Respiratory: Airway is patent Respiratory effort is even, unlabored, Respiratory pattern is regular, symmetrical. GI: No deficits noted. No signs and/or symptoms were reported involving the gastrointestinal system. : No deficits noted. No signs and/or symptoms were reported regarding the genitourinary system. Stroke Activation: Symptom onset > 6 hours Physician: Stroke Attending; Name: ; Notified At: ; Arrived At: Physician: Chief Stroke Resident; Name: ; Notified At: ; Arrived At: Physician: Stroke Resident; Name: ; Notified At: ; Arrived At: Physician: ED Attending; Name: ; Notified At: ; Arrived At: Physician: ED Resident; Name: ; Notified At: ; Arrived At: Historical: - Allergies: 12:16 bisoprolol fumarate; ab2 12:16 Diurex; ab2 12:16 HYDRALAZINE; ab2 12:16 Losartan; ab2 12:16 Metoprolol Tartrate; ab2 12:16 Nifedipine; ab2 - PMHx: 12:17 Anxiety; Hypertension; ab2 12:25 Left sided weakness- unspecified; aa5 - Immunization history:: Adult Immunizations up to date. - Social history:: Smoking status: Patient denies any tobacco usage or history of. - Family history:: not pertinent. Screenin:30 Abuse screen: Denies threats or abuse. Nutritional screening: No deficits noted. aa5 Tuberculosis screening: No symptoms or risk factors identified. Fall Risk Fall in past 12 months (25 points). Secondary diagnosis (15 points) left sided weakness . IV access (20 points). Total Nunn Fall Scale indicates High Risk Score (45 or more points). Fall prevention measures have been instituted. Side Rails Up X 2 Placed Close to Nursing Station. Assessment: 12:25 General: Appears comfortable, Behavior is calm, cooperative. Pain: Denies pain. Neuro: aa5 Level of Consciousness is awake, alert, obeys commands, Oriented to person, place, time, situation, Service Line Bus Cleaner are weak on left Moves all extremities. Weakness in left arm(s) leg(s) Speech is normal, Facial symmetry appears normal, Pt reports generalized weakness that began 1 week ago. Pt also reports tingling to jael hands and feet x 3 weeks ago. Reports left sided weakness x 3 years ago without a diagnosis. Intermittent tremors noted to left arm, pt states "the tremors started after I had shoulder surgery but the surgeon said the surgery had to nothing to do with the tremors" . Cardiovascular: Heart tones S1 S2 present Rhythm is regular. Respiratory: Airway is patent Respiratory effort is even, unlabored, Respiratory pattern is regular, symmetrical, Breath sounds are clear bilaterally. GI: Abdomen is round non-distended, Bowel sounds present X 4 quads. Abd is soft and non tender X 4 quads. Patient currently denies diarrhea, nausea, vomiting. : No signs and/or symptoms were reported regarding the genitourinary system. EENT: No signs and/or symptoms were reported regarding the EENT system. Derm: Skin is dry, Skin is normal, Skin temperature is warm. Musculoskeletal: Range of motion: intact in all extremities. 12:30 Reassessment: Pt assisted with bedpan, pt able to void x 1. . aa5 13:30 Neuro: Level of Consciousness is awake, alert, obeys commands, Oriented to person, aa5 place, time, situation. Respiratory: Airway is patent Respiratory effort is even, unlabored, Respiratory pattern is regular, symmetrical. Derm: Skin is dry, Skin is normal, Skin temperature is warm. 15:05 Neuro: Level of Consciousness is awake, alert, obeys commands, Oriented to person, aa5 place, time, situation. Respiratory: Airway is patent Respiratory effort is even, unlabored, Respiratory pattern is regular, symmetrical. Derm: Skin is dry, Skin is normal, Skin temperature is warm. Vital Signs: 12:15 BP 134 / 73; Pulse 79; Resp 17; Temp 97.8; Pulse Ox 100% ; Weight 93.44 kg; Height 5 ab2 ft. 5 in. (165.10 cm); Pain 7/10; 14:00 BP 130 / 68; Pulse 80; Resp 16 S; Pulse Ox 99% on R/A; aa5 12:15 Body Mass Index 34.28 (93.44 kg, 165.10 cm) ab2 ED Course: 12:08 Patient arrived in ED. as 12:09 Leandro Allan is Private Physician. as 12:16 Triage completed. ab2 12:18 Arm band placed on right wrist. ab2 12:23 Lydia Page, KEISHA is Primary Nurse. aa5 12:24 Janie Joy MD is Attending Physician. ma2 12:25 Patient has correct armband on for positive identification. Placed in gown. Bed in low aa5 position. Call light in reach. Side rails up X2. Pulse ox on. NIBP on. 13:00 Initial lab(s) drawn, by me, sent to lab. Inserted saline lock: 20 gauge in right aa5 antecubital area, using aseptic technique. Blood collected. 13:27 EKG done, by ED staff, reviewed by Janie Joy MD. ap3 13:47 CT Head Brain wo Cont In Process Unspecified. EDMS 14:52 Errol Pal MD is Referral Physician. ma2 15:05 No provider procedures requiring assistance completed. IV discontinued, intact, aa5 bleeding controlled, No redness/swelling at site. Pressure dressing applied. Administered Medications: 13:12 Drug: Ativan (LORazepam) 1 mg Route: IVP; Site: right antecubital; aa5 13:30 Follow up: Response: No adverse reaction aa5 Outcome: 14:52 Discharge ordered by . ma2 15:05 Discharged to home via wheelchair, with family. aa5 15:05 Condition: stable 15:05 Discharge instructions given to patient, family, Instructed on discharge instructions, follow up and referral plans. Demonstrated understanding of instructions, follow-up care. 15:28 Patient left the ED. aa5 Signatures: Dispatcher [employer] Natividad Omer Audri, RN RN aa5 Janie Joy MD MD ma2 Fouzia Dorado RN RN ap3 Kenny Alarcon
[2021-11-06 15:48] VITALS: TEMP 97.8
[2021-11-06 15:50] VITALS: BP 130/68; O2SAT 99
== END 2021-11-06 15:28 | disposition home or self-care (01) ==
LOC: ER 12:07
DX: G25.2 Other specified forms of tremor (principal); I10 Essential (primary) hypertension; F41.9 Anxiety disorder, unspecified; Z88.8 Allergy status to other drugs, medicaments and biological substances
CPT/HCPCS: 36415; 70450; 80048; 83735; 85025; 93005; 96374; 99284

== ENCOUNTER 2023-02-03 07:59 | Day surgery (SDC) | payer OTHER ==
--- NOTE | 2023-02-03 08:52 | RAD REPORT ---
EXAM DESCRIPTION: RAD - Chest Single View - 02/03/2023 8:42 am CLINICAL HISTORY: PRE-OP Chest pain. COMPARISON: Chest Single View dated 10/08/2018 FINDINGS: Portable technique limits examination quality. The lungs are grossly clear. The heart is normal in size. No displaced fractures. IMPRESSION: No acute intrathoracic process suspected.
[2023-02-03] MEDS ORDERED: CEFAZOLIN SODIUM 1 GM/VIAL ONE (09:11)
[2023-02-03 09:20] LABS: Absolute Lymphocytes (CBC) 2.1 K/uL (0.7-4.9); Hematocrit 33.7 % (36.0-45.0); Lymphocytes % 34.2 % (15.3-44.8); MCV 87.3 fL (80-100); MPV 7.9 fL (7.6-11.3); RBC Red Blood Cell Count 3.86 M/uL (3.86-4.86)
[2023-02-03] MEDS ORDERED: ONDANSETRON 4 MG/2 ML VIAL ONE ×2 (09:24→10:30)
[2023-02-03] MEDS ORDERED: FENTANYL CITR 100 MCG/2 ML ONE (09:24)
[2023-02-03] MEDS ORDERED: LIDOCAINE 2% MPF 5 ML VIAL ONE (09:24)
[2023-02-03] MEDS ORDERED: propofoL 200 MG/20 ML VIAL IV ONE (09:25)
[2023-02-03] MEDS ORDERED: MIDAZOLAM HCL 2 MG/2 ML INJ ONE (09:27)
[2023-02-03] MEDS ORDERED: BUPIVACAINE 0.5% PF 10 ML VIAL ONE (09:28)
[2023-02-03 09:37] LABS: Potassium 3.4 mEq/L (3.5-5.1)
[2023-02-03] MEDS: Ringers Lactate 1,000 ML IV ONE ×2 (09:49→10:23)
[2023-02-03 10:22] VITALS: O2SAT 100
[2023-02-03] MEDS ORDERED: dexAMETHasone 10 MG/ML VIAL ONE (10:30)
--- NOTE | 2023-02-03 10:42 | P.BOP ---
Preoperative diagnosis: tender scalp subQ mass 3x3cm Postoperative diagnosis: same Primary procedure: Excisional biopsy of tender scalp subQ mass 3x3cm Estimated blood loss: <10cc Specimen: mass Findings: scalp subQ mass 3x3cm Anesthesia: General Complications: None Transferred to: Recovery Room Condition: Good
[2023-02-03] MEDS: HYDROMORPHONE HCL 1 MG/ML INJ ONE ×2 (11:14→11:24)
[2023-02-03 11:33] VITALS: TEMP 97.4
[2023-02-03 13:06] VITALS: BP 147/77
--- NOTE | 2023-02-03 13:14 | EKG ---
Test Date: 2023-02-03 Test Time: 08:54:49 Career Development Specialist: JOVITA MEASUREMENT RESULTS: Intervals: Rate: 70 NJ: 160 QRSD: 80 QT: 386 QTc: 416 Hodge: P: 53 NJ: 160 QRS: 67 T: 72 INTERPRETIVE STATEMENTS: Normal sinus rhythm Normal ECG Compared to ECG 11/06/2021 13:26:06 No significant changes Electronically Signed On 02-03-23 13:14:17 CDT by Roland De
--- NOTE | 2023-02-03 16:31 | OP ---
Date of Procedure: 02/03/2023 Surgeon: Ashok Aparicio MD Preoperative Diagnosis: Tender scalp subcutaneous mass 3 x 3 cm. Postoperative Diagnosis: Tender scalp subcutaneous mass 3 x 3 cm. Procedure: Excisional biopsy of tender scalp subcutaneous mass 3 x 3 cm. Estimated Blood Loss: Less than 10 mL. Specimen: Mass. Finding: Scalp subcutaneous mass. Anesthesia: General plus local. Indication: This is the case of a lady, who comes to us with a scalp mass, not only giving her pain and discomfort, but also already creating alopecia in that region. She wants that excised, becoming larger recently and benefits, alternatives, and risks fully explained, which include, but not limited to infection, bleeding, damage to adjacent structures, anesthesia complication, nonhealing wound, al opecia over the area of the surgery, NJ, and even . She also understands this may not relieve a ny symptoms. She might need more than one surgical intervention. She understood, signed a consent. The area of concern by us was marked by me and the patient in the holding room. Procedure In Detail: The patient was brought to the operating room, placed in supine position. Anes thesia was done without complication. The scalp area was prepped and draped in the usual sterile fas hion. Local anesthesia was applied after time-out. Then, after that, I proceeded to make a wedge in cision on the skin. Carefully, the skin was removed away from the mass and also the subcutaneous tis atilio all the way down to galea. Muscle is so nearby, but not involved by this. Mass was completely e xcised. The area was profusely irrigated, hemostasis obtained, and then we proceeded to close this w ith 3-0 chromic in first layers and then 3-0 nylon in mattress suture fashion on the outside. The pa tient tolerated the procedure well. Hemostasis was obtained before closure. The patient was sent to recovery in stable condition. MILLER/MONTANA Voice ID: [id number] Report ID: [id number]
--- NOTE | 2023-02-03 16:31 | DS ---
Date of Discharge: 02/03/2023 Diagnosis: Tender scalp subcutaneous mass. Procedure: Excisional biopsy of tender scalp subcutaneous mass. Disposition: Home. Activity: As tolerated. No heavy lifting. Plan: Follow up in my office in 1 week. Call for appointment at [phone]. Keep area dry for 48 quique rs, then may remove outer dressings and shower. May clean the scalp with some mild shampoo that may include also baby shampoo. MILLER/MONTANA Voice ID: [id number] Report ID: [id number]
== END 2023-02-03 13:00 | disposition home or self-care (01) ==
LOC: OR 07:59
PROVIDERS: ATTEND Surgery
PROC: 0JB00ZZ Excision of Scalp Subcutaneous Tissue and Fascia, Open Approach (ICD-10-PCS; principal; 2023-02-03 10:45)
DX: L72.12 Trichodermal cyst (principal)
CPT/HCPCS: 11423; 93005; 85025; 80048; 36415; 81025; 88305; 71045; J2704; J2001; J2250; J3010; J1100; J1170; J2405 ×2; J7120; J0690

== ENCOUNTER → 2023-08-30 | Emergency (ER) | payer OTHER ==
--- NOTE | 2023-08-30 19:09 | RAD REPORT ---
EXAM DESCRIPTION: RAD - Knee Right 3 View - 08/30/2023 6:58 pm CLINICAL HISTORY: Right knee pain FINDINGS: No fracture or dislocation is seen. Prominent spurs extend from the anterior aspect of the patella
--- NOTE | 2023-08-30 19:23 | ER ---
Nurse's Notes [facility] Name: Zayra Hoffman Age: 48 yrs Sex: Female : 1975 Arrival Date: 08/30/2023 Time: 17:12 Bed 9 Private MD: Diagnosis: Sprain of unspecified site of right knee Presentation: 08/30 17:40 Chief complaint: Patient states: Right knee pain since Wednesday, getting worse. Denies nj1 injury. Ebola Screen: Patient denies travel to an Ebola-affected area in the 21 days before illness onset. Risk Assessment: Do you want to hurt yourself or someone else? Patient reports no desire to harm self or others. Onset of symptoms was August 28, 2023. 17:40 Method Of Arrival: Ambulatory nj 17:40 Acuity: SHMUEL 3 nj1 17:43 Coronavirus screen: Vaccine status: Patient reports receiving the 2nd dose of the covid nj1 vaccine. Initial Sepsis Screen: Does the patient meet any 2 criteria? No. Patient's initial sepsis screen is negative. Does the patient have a suspected source of infection? No. Patient's initial sepsis screen is negative. Historical: - Allergies: 17:41 bisoprolol fumarate; nj1 17:41 Diurex; nj1 17:41 HYDRALAZINE; nj1 17:41 Losartan; nj1 17:41 Metoprolol Tartrate; nj1 17:41 Nifedipine; nj1 - PMHx: 17:41 Anxiety; Hypertension; Left sided weakness- unspecified; Parkinson's disease; nj1 Hypercholesterolemia; - Immunization history:: Client reports receiving the 2nd dose of the Covid vaccine. - Social history:: Smoking status: Patient denies any tobacco usage or history of. Screenin:54 [facility] ED Fall Risk Assessment (Adult) History of falling in the last 3 months, ko1 including since admission No falls in past 3 months (0 pts). Abuse screen: Denies threats or abuse. Denies injuries from another. Nutritional screening: No deficits noted. Tuberculosis screening: No symptoms or risk factors identified. Assessment: 18:54 Pain: Complains of pain in right knee. ko1 19:10 Reassessment: Patient appears in no apparent distress at this time. No changes from km8 previously documented assessment. Patient and/or family updated on plan of care and expected duration. Pain level reassessed. Patient is alert, oriented x 3, equal unlabored respirations, skin warm/dry/pink. General: Appears in no apparent distress. comfortable, Behavior is calm, cooperative, appropriate for age. Pain: Complains of pain in right knee Pain currently is 8 out of 10 on a pain scale. Neuro: Level of Consciousness is awake, alert, Oriented to person, place, time, situation. Cardiovascular: Capillary refill < 3 seconds Patient's skin is warm and dry. Respiratory: Airway is patent Respiratory effort is even, unlabored, Respiratory pattern is regular, symmetrical. 19:56 Reassessment: Patient appears in no apparent distress at this time. No changes from km8 previously documented assessment. Patient and/or family updated on plan of care and expected duration. Pain level reassessed. Patient is alert, oriented x 3, equal unlabored respirations, skin warm/dry/pink. Vital Signs: 17:40 BP 143 / 93; Pulse 78; Resp 18; Temp 98.3(O); Pulse Ox 100% ; Weight 88.45 kg; Height 5 nj1 ft. 5 in. ; Pain 8/10; 19:55 BP 160 / 86; Pulse 75; Resp 16; Pulse Ox 99% on R/A; km8 17:40 Body Mass Index 32.45 (88.45 kg, 165.1 cm) nj1 17:40 Pain Scale: Adult [facility] ED Course: 17:16 Patient arrived in ED. im 17:16 Thomas Bagley MD is Attending Physician. ec2 17:41 Triage completed. nj1 17:42 Arm band placed on right wrist. nj1 18:18 Liliya Qureshi, KEISHA is Primary Nurse. ko1 18:54 Patient has correct armband on for positive identification. Allergy band placed. Bed in ko1 low position. Call light in reach. NIBP on. Door closed. Noise minimized. Lights dimmed. 18:54 Patient did not have IV access during this emergency room visit. ko1 18:59 Knee Right 3 View XRAY In Process Unspecified. EDMS 19:56 Provided Education on: d/c teaching; lisa wrap teaching. km8 19:56 No provider procedures requiring assistance completed. km8 Administered Medications: No medications were administered Medication: 19:57 VIS not applicable for this client. km8 Outcome: 19:22 Discharge ordered by . ec2 19:57 Discharged to home via wheelchair, km8 19:57 Condition: good 19:57 Discharge instructions given to patient, Instructed on discharge instructions, follow up and referral plans. medication usage, Demonstrated understanding of instructions, follow-up care, medications, Prescriptions given X 1, 19:57 Patient left the ED. km8 Signatures: Dispatcher [employer] EDLiliya Bean, RN RN ko1 Melita Cochran RN RN nj1 Sariah Lin Edwin, MD MD ec2 Marx, Katie, RN RN km8 Corrections: (The following items were deleted from the chart) 17:45 17:40 BP 155 / 125; Pulse 78bpm; Resp 18bpm; Pulse Ox 100%; nj1 nj1
--- NOTE | 2023-08-30 19:23 | EDPHYS ---
Physician Documentation [facility] Name: Zayra Hoffman Age: 48 yrs Sex: Female : 1975 Arrival Date: 08/30/2023 Time: 17:12 Bed 9 Private MD: ED Physician Thomas Bagley HPI: 08/30 17:44 This 48 yrs old Black Female presents to ER via Ambulatory with complaints of Knee Pain ec2 - right. 17:44 Patient arrives today for evaluation of right knee pain. Patient reports 2 days of ec2 pain. Reports pain with ambulation, states that she feels like her knee is unstable. Patient reports no falls or injuries or trauma. Patient denies any swelling. Denies any redness.. Historical: - Allergies: 17:41 bisoprolol fumarate; nj1 17:41 Diurex; nj1 17:41 HYDRALAZINE; nj1 17:41 Losartan; nj1 17:41 Metoprolol Tartrate; nj1 17:41 Nifedipine; nj1 - PMHx: 17:41 Anxiety; Hypertension; Left sided weakness- unspecified; Parkinson's disease; nj1 Hypercholesterolemia; - Immunization history:: Client reports receiving the 2nd dose of the Covid vaccine. - Social history:: Smoking status: Patient denies any tobacco usage or history of. ROS: 17:44 Constitutional: as per hpi ec2 Exam: 17:44 Constitutional: GEN: NAD Head: atraumatic Eyes: EOMI Ears: External ears are ec2 normal. CV: regular rate LUNGS: no respiratory distress ABD: non-distended SKIN: no evidence of rashes MSK: no evidence of trauma, right knee with good range of motion, no ecchymosis, no erythema, no warmth, no effusion appreciated, intact distal neurovascular status. NEURO: moves all extremities equally Vital Signs: 17:40 BP 143 / 93; Pulse 78; Resp 18; Temp 98.3(O); Pulse Ox 100% ; Weight 88.45 kg; Height 5 nj1 ft. 5 in. ; Pain 8/10; 19:55 BP 160 / 86; Pulse 75; Resp 16; Pulse Ox 99% on R/A; km8 17:40 Body Mass Index 32.45 (88.45 kg, 165.1 cm) nj 17:40 Pain Scale: Adult nj1 MDM: 17:43 Patient medically screened. ec2 17:44 Data reviewed: vital signs. ED course: Patient arrives today for evaluation of right ec2 knee pain. Examination remarkable for knee findings as noted above. Will obtain radiograph of the right knee, low suspicion for bony fracture, suspect ligamentous instability or injury, low suspicion for septic joint, low suspicion for DVT or cellulitis. . 19:22 ED course: X-ray shows no evidence of bony fracture. Will discharge home. Return ec2 precautions given. Suspect ligamentous injury.. 08/30 17:43 Order name: Knee Right 3 View XRAY; Complete Time: 19:22 ec2 08/30 19:26 Order name: Anoop Wrap; Complete Time: 19:56 ec2 Administered Medications: No medications were administered Disposition Summary: 08/30/23 19:22 Discharge Ordered Notes: Location: Home ec2 Condition: Stable ec2 Diagnosis - Sprain of unspecified site of right knee ec2 Followup: ec2 - With: Private Physician - When: - Reason: Recheck today's complaints Discharge Instructions: - Discharge Summary Sheet ec2 - Knee Sprain, Adult, [id number] ec2 Forms: - Medication Reconciliation Form ec2 - Thank You Letter ec2 - Antibiotic Education ec2 - Prescription Opioid Use ec2 - Patient Portal Instructions ec2 - Leadership Thank You Letter ec2 Prescriptions: - methocarbamol 500 mg Oral tablet - take 2 tablets ORAL route 4 times per day; 20 tablet; Refills: 0, Product ec2 Selection Permitted Signatures: Dispatcher [employer] Melita Smith RN RN nj1 Thomas Bagley MD MD ec2
[2023-08-30 20:22] VITALS: BP 143/93; TEMP 98.3; O2SAT 100
== END ==
LOC: ER 17:12
DX: S83.91XA Sprain of unspecified site of right knee, initial encounter (principal); Z88.8 Allergy status to other drugs, medicaments and biological substances
CPT/HCPCS: 99283

== ENCOUNTER 2024-09-04 08:28 | Emergency (ER) | payer OTHER ==
[2024-09-04] MEDS ORDERED: NA CHLORIDE 0.9% 1,000 ML ONE (09:09)
[2024-09-04 09:48] LABS: Absolute Eosinophils 0.1 K/uL (0-0.5); Absolute Lymphocytes (CBC) 2.5 K/uL (0.7-4.9); Absolute Monocytes 0.5 K/uL (0.1-1.3); Absolute Neutrophil 3.9 K/uL (1.8-8.0); Basophils % 0.5 % (0-1.3); Eosinophils % 1.5 % (0-4.4); Hematocrit 33.2 % (36.0-45.0); Hemoglobin 11.2 g/dL (12.0-15.0); Lymphocytes % 35.3 % (15.3-44.8); MCH 28.7 pg (27.0-35.0); MCHC 33.7 g/dL (32.0-36.0); MPV 8.5 fL (7.6-11.3); Monocytes % 7.3 % (3.3-12.3); Neutrophils % 55.4 % (41.7-73.7); Nucleated Red Blood Cells % 0.1 % (0-0); Platelets 382 thou/uL (152-406)
[2024-09-04] MEDS ORDERED: DICYCLOMINE HCL 10 MG CAP ONE (10:07)
[2024-09-04] MEDS ORDERED: ONDANSETRON 4 MG/2 ML VIAL ONE (10:07)
[2024-09-04 10:08] LABS: AST/SGOT 16 U/L (15-37); Albumin 3.8 g/dL (3.4-5.0); Albumin/Globulin Ratio 0.9 (1.1-1.8); Alkaline Phosphatase 84 U/L (45-117); Anion Gap 9.6 mEq/L (5.0-15.0); BUN Blood Urea Nitrogen 11 mg/dL (7-18); Bicarbonate 26 mEq/L (21-32); Bilirubin Total 0.5 mg/dL (0.2-1.0); Globulin 4.3 g/dL (2.3-3.5); Glomerular Filtration Rate 55 ml/min (=/>90); Glucose Level 96 mg/dL (74-106); Lipase 59 U/L (13-75); Potassium 3.6 mEq/L (3.5-5.1); Protein, Total 8.1 g/dL (6.4-8.2); Sodium Level 137 mEq/L (136-145)
[2024-09-04] MEDS ORDERED: FAMOTIDINE 20 MG/2 ML VIAL IV ONE (10:08)
[2024-09-04 10:13] LABS: ALT/SGPT < 14 U/L (13-56)
--- NOTE | 2024-09-04 11:35 | RAD REPORT ---
EXAMINATION: CT Abdomen Pelvis W Contrast CLINICAL INDICATION: Female, 49 years old. ABD PAIN TECHNIQUE: CT abdomen and pelvis was performed, after the administration of IV contrast, [facility] Axial, sagittal and coronal reconstructions were obtained. One or more of the following dose reduction techniques were used: Automated exposure control, adjustment of the mA and k V according to patient size, and iterative reconstruction. Unless otherwise specified, incidental findings do not require dedicated imaging follow-up. COMPARISON: 05/11/2009 FINDINGS: LOWER CHEST: The visualized lung bases are clear. LIVER: Normal in size and contour. Subcentimeter well-circumscribed hypoattenuating parenchymal lesio ns, may represent small cysts, difficult to characterize given size. No suspicious focal lesion. BILIARY SYSTEM: Not well-visualized may be surgically removed.. SPLEEN: Normal size. No focal lesion. PANCREAS: No mass, ductal dilation, or den-pancreatic fluid. ADRENALS: Normal; no mass. KIDNEYS: Normal size and contour. No hydronephrosis. URINARY BLADDER: Unremarkable. GASTROINTESTINAL TRACT: No evidence of free air, significant intra-abdominal free fluid, bowel obstru ction or abscess. APPENDIX: Normal appendix. LYMPH NODES: No lymphadenopathy. MUSCULOSKELETAL: No acute or suspicious osseous abnormality. ADDITIONAL FINDINGS: None. IMPRESSION: No acute or concerning abnormalities seen in the abdomen or pelvis. Incidental findings as above.
--- NOTE | 2024-09-04 11:46 | EDPHYS ---
Physician Documentation [facility] Name: Zayra Hoffman Age: 49 yrs Sex: Female : 1975 Arrival Date: 09/04/2024 Time: 08:28 Bed 8 Private MD: ED Physician Pj Gardiner HPI: 09/04 08:43 This 49 yrs old Black Female presents to ER via Unassigned with complaints of Abdominal kb Pain, Vomiting. 08:43 Pt is a 49 year old female who presents for epigastric pain and vomiting that started kb one week ago. States she has had a "sour stomach" for about a month. Reports she has been vomiting once per day, twice yesterday and today she wasn't able to keep anything down. denies diarrhea, fever. . VACUUM CASTER: 08:51 LMP 07/2023, unknown ss Historical: - Allergies: 08:51 bisoprolol fumarate; ss 08:51 Diurex; ss 08:51 HYDRALAZINE; ss 08:51 Losartan; ss 08:51 Metoprolol Tartrate; ss 08:51 Nifedipine; ss - PMHx: 08:51 Anxiety; Hypercholesterolemia; Hypertension; Left sided weakness- unspecified; ss Parkinson's disease; - Immunization history:: Client reports receiving the 2nd dose of the Covid vaccine. - Infectious Disease History:: Denies. - Social history:: Smoking status: Patient denies any tobacco usage or history of. ROS: 08:43 Constitutional: As per HPI kb Exam: 08:43 Constitutional: This is a well developed, well nourished patient who is awake, alert, kb and in no acute distress. Head/Face: Normocephalic, atraumatic. ENT: Moist Mucous membranes Cardiovascular: Regular rate Respiratory: Respirations even and unlabored. No increased work of breathing. Talking in full sentences Skin: Warm, dry with normal turgor. Normal color. MS/ Extremity: Pulses equal, no cyanosis. Neurovascular intact. Full, normal range of motion. Neuro: Awake and alert, GCS 15, oriented to person, place, time, and situation. 08:43 Abdomen/GI: Inspection: abdomen appears normal, Bowel sounds: normal, Palpation: soft, in all quadrants, mild abdominal tenderness, in the epigastric area, Vital Signs: 08:50 BP 128 / 88; Pulse 75; Resp 14; Temp 97.7(O); Pulse Ox 100% on R/A; Weight 83.91 kg; ss Height 5 ft. 5 in. ; Pain 5/10; 11:19 BP 154 / 76; Pulse 71; Resp 18; Pulse Ox 100% on R/A; ph 11:59 BP 158 / 88; Pulse 75; Resp 16; Pulse Ox 100% ; bp 08:50 Body Mass Index 30.79 (83.91 kg, 165.1 cm) ss 08:50 Pain Scale: Adult ss MDM: 08:32 Medical Screening Exam initiated kb 08:43 Differential diagnosis: gastritis, gastroesophageal reflux disease, non-specific abd kb pain, pancreatitis. Data reviewed: vital signs, nurses notes. 11:44 Counseling: I had a detailed discussion with the patient and/or guardian regarding the kb historical points, exam findings, and any diagnostic results supporting the discharge/admit diagnosis, lab results, radiology results, the need for outpatient follow up, a family practitioner, a supervisor treating and pumping, to return to the emergency department if symptoms worsen or persist or if there are any questions or concerns that arise at home. 09/04 08:39 Order name: CBC with Diff; Complete Time: 09:52 kb 09/04 08:39 Order name: CMP; Complete Time: 10:15 kb 09/04 08:39 Order name: Lipase; Complete Time: 10:15 kb 09/04 08:39 Order name: CT Abd/Pelvis - IV Contrast Only; Complete Time: 11:41 kb 09/04 08:39 Order name: IV Saline Lock; Complete Time: 09:21 kb 09/04 08:39 Order name: Labs collected and sent; Complete Time: 09:21 kb 09/04 09:31 Order name: Labs - recollect needed; Complete Time: 09:37 kb Administered Medications: 09:21 Drug: NS 0.9% IV 1000 ml IV at 1 bolus Per protocol; to be given as a bolus over 60 ko1 minutes Route: IV; Rate: 1 bolus; Site: left antecubital; 09:41 Follow up: IV SiteChange: right antecubital; IV SiteChange Reason: Infiltration ph 12:00 Follow up: IV Status: Completed infusion bp 10:12 Drug: Ondansetron IVP 4 mg IVP once; over 2 minutes Route: IVP; Site: right antecubital;ko1 12:00 Follow up: Response: No adverse reaction bp 10:12 Drug: Famotidine IVP 20 mg IVP once; dilute with 10 mL 0.9% NaCl; give over 2 minutes ko1 Route: IVP; Site: right antecubital; 12:00 Follow up: Response: No adverse reaction bp 10:12 Drug: Dicyclomine PO 20 mg PO once Route: PO; ko1 12:00 Follow up: Response: No adverse reaction bp Disposition: 13:39 Co-signature as Attending Physician, Pj Gardiner MD I reviewed the patient's care rt provided by the Advanced Practice Provider and agree with the diagnosis and treatment plan. Disposition Summary: 09/04/24 11:45 Discharge Ordered Notes: Location: Home kb Condition: Stable kb Diagnosis - Upper abdominal pain, unspecified kb Followup: kb - With: Emergency Department - When: As needed - Reason: Worsening of condition Followup: kb - With: Private Physician - When: 2 - 3 days - Reason: Recheck today's complaints, Continuance of care, Re-evaluation by your physician Discharge Instructions: - Discharge Summary Sheet kb - Gastroesophageal Reflux Disease, Adult kb - Abdominal Pain, Adult, [id number] kb - Peptic Ulcer, [id number] kb Forms: - Medication Reconciliation Form kb - Antibiotic Education kb - Prescription Opioid Use kb - Patient Portal Instructions kb - Leadership Thank You Letter kb Prescriptions: - Zofran 4 mg Oral tablet - take 1 tablet ORAL route every 6 hours As needed; 12 tablet; Refills: 0, kb Product Selection Permitted - dicyclomine 20 mg Oral tablet - take 1 tablet ORAL route 4 times per day As needed; 20 tablet; Refills: 0, kb Product Selection Permitted Signatures: Dispatcher [employer] Mayra Sinha FNP-C FNP-Marie Morales RN RN ss Liliya Qureshi RN RN ko1 Pj Gardiner MD MD rt Saskia Campbell RN Guzman Raymundo RN bp
--- NOTE | 2024-09-04 11:46 | ER ---
Nurse's Notes [facility] Name: Zayra Hoffman Age: 49 yrs Sex: Female : 1975 Arrival Date: 09/04/2024 Time: 08:28 Bed 8 Private MD: Diagnosis: Upper abdominal pain, unspecified Presentation: 09/04 08:50 Chief complaint: Patient states: abd pain, N/V x 1 week. Coronavirus screen: Client ss denies travel out of the [place] in the last 14 days. Ebola Screen: Patient denies exposure to infectious person. Patient denies travel to an Ebola-affected area in the 21 days before illness onset. Initial Sepsis Screen: Does the patient meet any 2 criteria? No. Patient's initial sepsis screen is negative. Does the patient have a suspected source of infection? No. Patient's initial sepsis screen is negative. Risk Assessment: Do you want to hurt yourself or someone else? Patient reports no desire to harm self or others. Onset of symptoms was August 28, 2024. 08:50 Method Of Arrival: Ambulatory ss 08:50 Acuity: SHMUEL 3 ss CERTIFIED ORTHOTIC FITTER: 08:51 LMP 07/2023, unknown ss Historical: - Allergies: 08:51 bisoprolol fumarate; ss 08:51 Diurex; ss 08:51 HYDRALAZINE; ss 08:51 Losartan; ss 08:51 Metoprolol Tartrate; ss 08:51 Nifedipine; ss - PMHx: 08:51 Anxiety; Hypercholesterolemia; Hypertension; Left sided weakness- unspecified; ss Parkinson's disease; - Immunization history:: Client reports receiving the 2nd dose of the Covid vaccine. - Infectious Disease History:: Denies. - Social history:: Smoking status: Patient denies any tobacco usage or history of. Screenin:[address] [facility] ED Fall Risk Assessment (Adult) History of falling in the last 3 months, ko1 including since admission No falls in past 3 months (0 pts) Confusion or Disorientation No (0 pts) Intoxicated or Sedated No (0 pts) Impaired Gait No (0 pts) Mobility Assist Device Used No (0 pt) Altered Elimination No (0 pt) Score/Fall Risk Level 0 - 2 = Low Risk Oriented to surroundings, Maintained a safe environment, Educated pt \T\ family on fall prevention, incl call for assistance when getting out of bed, Assessed \T\ reinforced patient's understanding of fall precautions, Hourly rounding (assess needs \T\ fall precautionary measures) done. Abuse screen: Denies threats or abuse. Denies injuries from another. Nutritional screening: No deficits noted. Tuberculosis screening: No symptoms or risk factors identified. Assessment: 09:27 General: Appears in no apparent distress. uncomfortable, Behavior is calm, cooperative, ko1 appropriate for age. Pain: Complains of pain in epigastric area. Neuro: No deficits noted. Cardiovascular: No deficits noted. Respiratory: No deficits noted. GI: Bowel sounds present X 4 quads. Abd is soft X 4 quads Reports upper abdominal pain, epigastric pain. : No deficits noted. No signs and/or symptoms were reported regarding the genitourinary system. EENT: No deficits noted. No signs and/or symptoms were reported regarding the EENT system. Derm: No deficits noted. No signs and/or symptoms reported regarding the dermatologic system. Musculoskeletal: Reports parkinsons. Vital Signs: 08:50 BP 128 / 88; Pulse 75; Resp 14; Temp 97.7(O); Pulse Ox 100% on R/A; Weight 83.91 kg; ss Height 5 ft. 5 in. ; Pain 5/10; 11:19 BP 154 / 76; Pulse 71; Resp 18; Pulse Ox 100% on R/A; ph 11:59 BP 158 / 88; Pulse 75; Resp 16; Pulse Ox 100% ; bp 08:50 Body Mass Index 30.79 (83.91 kg, 165.1 cm) ss 08:50 Pain Scale: Adult ss ED Course: 08:29 Patient arrived in ED. im 08:32 Mayra Le FNP-C is PHCP. kb 08:32 Pj Gardiner MD is Attending Physician. kb 08:51 Triage completed. ss 08:51 Arm band placed on right wrist. ss 09:12 Liliya Qureshi, KEISHA is Primary Nurse. ko1 09:21 CBC with Diff Sent. ko1 09:21 CMP Sent. ko1 09:21 Lipase Sent. ko1 09:27 Patient has correct armband on for positive identification. Allergy band placed. Placed ko1 in gown. Bed in low position. Call light in reach. Side rails up X2. Provided Education on: labs,meds. Pulse ox on. NIBP on. Door closed. Noise minimized. Lights dimmed. Warm blanket given. Pillow given. 09:27 No provider procedures requiring assistance completed. ko1 09:41 Lab(s) recollected, by me, sent to lab. Inserted saline lock: 22 gauge in right ph antecubital area, using aseptic technique. Blood collected. Flushed with 10 mL NS. 10:20 CT Abd/Pelvis - IV Contrast Only In Process Unspecified. EDMS 11:59 IV discontinued, intact, bleeding controlled, No redness/swelling at site. Pressure bp dressing applied. Administered Medications: 09:21 Drug: NS 0.9% IV 1000 ml IV at 1 bolus Per protocol; to be given as a bolus over 60 ko1 minutes Route: IV; Rate: 1 bolus; Site: left antecubital; :41 Follow up: IV SiteChange: right antecubital; IV SiteChange Reason: Infiltration ph 12:00 Follow up: IV Status: Completed infusion bp 10:12 Drug: Ondansetron IVP 4 mg IVP once; over 2 minutes Route: IVP; Site: right antecubital;ko1 12:00 Follow up: Response: No adverse reaction bp 10:12 Drug: Famotidine IVP 20 mg IVP once; dilute with 10 mL 0.9% NaCl; give over 2 minutes ko1 Route: IVP; Site: right antecubital; 12:00 Follow up: Response: No adverse reaction bp 10:12 Drug: Dicyclomine PO 20 mg PO once Route: PO; ko1 12:00 Follow up: Response: No adverse reaction bp Medication: 09:27 VIS not applicable for this client. ko1 Outcome: 11:45 Discharge ordered by MD. milligan 11:59 Discharged to home ambulatory, bp 11:59 Condition: stable 11:59 Discharge instructions given to patient, Instructed on discharge instructions, follow up and referral plans. medication usage, Demonstrated understanding of instructions, follow-up care, medications, Prescriptions given X 2, 12:01 Patient left the ED. bp Signatures: Dispatcher [employer] EDMS Mayra Le FNP-C FNP-Ckb Blanchard, Shelby, RN RN Saskia Campbell RN RN Guzman Raymundo RN RN bp Liliya Qureshi RN RN ko1 Lin, Sariah im
[2024-09-04 12:06] VITALS: TEMP 97.7; O2SAT 100
[2024-09-04 12:08] VITALS: BP 158/88
== END 2024-09-04 12:01 | disposition home or self-care (01) ==
LOC: ER 08:28
DX: R10.13 Epigastric pain (principal)
CPT/HCPCS: 96361; 85025; 36415; 83690; 80053; 74177; 96375; 96374; 99284; Q9967; J2405; J7030